=== PATIENT | female | born 1945 | race Caucasian/White ===

== ENCOUNTER → 2018-10-26 | Outpatient (CLI) | payer MEDICARE ==
--- NOTE | 2018-10-26 15:02 | BD ---
EXAMINATION TYPE: Axial Bone Density DATE OF EXAM: 10/26/2018 COMPARISON: NONE CLINICAL HISTORY: Postmenopausal female Height: 5 FT 2 1/4 IN Weight: 167 FRAX RISK QUESTIONS: Glucocorticoids (More than 3mos): YES (Ex: prednisone, prednisolone, methylprednisolone, dexamethasone, and hydrocortisone). RISK FACTORS HISTORY OF: Surgery to Spine/Hip(right/left)/Wrist (right/left): LT HIP REPLACEMENT When: 2017 Active: NO Postmenopausal woman: AGE 45- 50 Lost more than 2 inches in height since high school: YES MEDICATIONS: Additional Medications: SIMVASTATIN, LOSARTIN, ASPIRIN, KEPPRA, CALCIUM, Additional History: EXAM MEASUREMENTS: Bone mineral densitometry was performed using the [employer] System. Bone mineral density as measured about the Lumbar spine is: ----- L1-L4(G/cm2): 1.315 T Score Values are as follows: ----- L2: 0.2 ----- L3: 1.2 ----- L4: 1.4 ----- L1-L4: 1.1 PREV NOT DONE HERE Bone mineral density about the R hip (g/cm2): 0.888 T Score values are as follows: -----R Neck: -1.1 -----R Total: -0.4 PREV NOT DONE HERE IMPRESSION: Normal (Values between +1 and -1 indicate normal bone mass). Consider repeating this study in 5 year s or sooner if there is some new clinical indication. NOTE: T-SCORE=SD OF THE YOUNG ADULT MEAN.
== END | disposition home or self-care (01) ==
LOC: RADBDWWP 12:35
PROVIDERS: ATTEND Family Medicine
DX: M89.9 Disorder of bone, unspecified (principal)
CPT/HCPCS: 77080

== ENCOUNTER 2019-02-07 12:56 | Inpatient (IN) | payer MEDICARE ==
[2019-02-07] MEDS ORDERED: SODIUM CHLORIDE 0.9% 500 ML 500 ML IV STA (13:20)
[2019-02-07 13:41] LABS: Glucose,Whole Blood 125 mg/dL (75-99)
--- NOTE | 2019-02-07 13:52 | ED ---
Weakness HPI - General Chief complaint: Weakness Stated complaint: Weakness Time Seen by Provider: 02/07/19 13:15 Source: family Mode of arrival: ambulatory Limitations: altered mental status - History of Present Illness Initial comments: Patient is 73-year-old female who presents emergency Department with reported confusion. is at bedside and provides majority of the history. He states that her symptoms started on . Patient has appeared to be more confused since then. Reports that she went to the bank without her shoes. She has had a slow downward progression with her mentation. states that appears as if she has hard of hearing. She asks multiple times what he had said. She has been extremely tremulous. states that she has been unable to drink a cup of coffee as she does spill majority of it. Denies any unilateral numbness or weakness. Does admit to generalized weakness. No recent blunt head trauma. The patient is not on any blood thinners. No recent medication changes. Does not take any medications [id number]. She denies any pain. There is no headache or visual changes. Denies any neck pain or stiffness. No fevers or chills. Denies any sick contacts or recent travel. No history of TIA or CVA. The reports the patient has a cough which is nonproductive. Denies hemoptysis. No abdominal pain or changes in her urination. Denies dysuria, hematuria or difficulty voiding. Denies any changes in her bowel movements including diarrhea, constipation, melanotic stools or hematochezia. No back pain or flank pain. No history of similar episode in the past. There are no other alleviating, precipitating or modifying factors - Related Data Home Medications Medication Instructions Recorded Confirmed Aspirin EC [Ecotrin Low Dose] 81 mg PO DAILY 02/19/16 02/07/19 Losartan Potassium 100 mg PO DAILY 02/19/16 02/07/19 Simvastatin [Zocor] 20 mg PO HS 02/19/16 02/07/19 levETIRAcetam [Keppra] 750 mg PO Q12H 02/07/19 02/07/19 Previous Rx's Medication Instructions Recorded Amoxicillin/Potassium Clav 1 tab PO Q12HR #10 tab 02/11/19 [Augmentin 875-125 Tablet] Chlorthalidone 25 mg PO DAILY #1 tab 02/11/19 Omeprazole [PriLOSEC] 20 mg PO AC-BRKFST #90 cap 02/11/19 Allergies Allergy/AdvReac Type Severity Reaction Status Date / Time No Known Allergies Allergy Verified 02/07/19 13:22 Review of Systems ROS Statement: Those systems with pertinent positive or pertinent negative responses have been documented in the HPI. ROS Other: All systems not noted in ROS Statement are negative. Past Medical History Past Medical History: Hyperlipidemia, Hypertension, Seizure Disorder History of Any Multi-Drug Resistant Organisms: None Reported Past Surgical History: Orthopedic Surgery Additional Past Surgical History / Comment(s): right shoulder, droopy eyelid repair-2008, Lt hip replacement Past Anesthesia/Blood Transfusion Reactions: No Reported Reaction Past Psychological History: No Psychological Hx Reported Smoking Status: Never smoker Past Alcohol Use History: None Reported Past Drug Use History: None Reported - Past Family History Mother Family Medical History: Myocardial Infarction ([place]) Additional Family Medical History / Comment(s): mother of [place] 2005. Sister(s) Additional Family Medical History / Comment(s): Twin sister 10 years ago of unkown cause. General Exam Limitations: altered mental status General appearance: alert, in no apparent distress Head exam: Present: atraumatic, normocephalic, normal inspection Eye exam: Present: normal appearance, PERRL, EOMI. Absent: scleral icterus, conjunctival injection, periorbital swelling ENT exam: Present: normal exam, mucous membranes moist Neck exam: Present: normal inspection. Absent: tenderness, meningismus, lymphadenopathy Respiratory exam: Present: normal lung sounds bilaterally. Absent: respiratory distress, wheezes, rales, rhonchi, stridor Cardiovascular Exam: Present: regular rate, normal rhythm, normal heart sounds. Absent: systolic murmur, diastolic murmur, rubs, gallop, clicks GI/Abdominal exam: Present: soft, normal bowel sounds. Absent: distended, tenderness, guarding, rebound, rigid Extremities exam: Present: normal inspection, full ROM, normal capillary refill. Absent: tenderness, pedal edema, joint swelling, calf tenderness Back exam: Present: normal inspection Neurological exam: Present: alert, oriented X3, CN II-XII intact Psychiatric exam: Present: normal affect, normal mood Skin exam: Present: warm, dry, intact, normal color. Absent: rash Course Vital Signs 09/06/2702/07/19 02/07/19 13:11 14:46 17:23 Temperature 98.2 F 98.1 F Pulse Rate 64 65 65 Respiratory 18 18 18 Rate Blood Pressure 140/80 152/87 148/84 O2 Sat by Pulse 96 96 96 Oximetry 02/07/19 18:27 Temperature 97.9 F Pulse Rate 65 Respiratory 18 Rate Blood Pressure 141/94 O2 Sat by Pulse 97 Oximetry EKG Findings - EKG Comments: EKG Findings:: Twelve-lead EKG demonstrates a normal sinus rhythm with a ventricular rate of 66. MD interval 132. QRS 82. QTC of 438. There is an inverted T-wave in lead 3. No acute ST segment elevations concerning for ischemic changes Medical Decision Making - Medical Decision Making She was placed into room 5. She is hooked up to continuous pulse ox and cardiac monitoring. 12-lead EKG is performed the patient which demonstrates no acute findings. Peripheral IV is established. The patient was given a 500 mL bolus of 0.9% normal saline. Laboratory studies were conducted and the patient was sent for a CT of her brain and CT of her abdomen and pelvis. She also has a chest x-ray performed. Upon review of the laboratory studies the patient's sodium is 129. She has an AST of 384 and ALT of 308. Alk phos is elevated at 128. CK 453. Review of the patient's chest x-ray demonstrates a right middle lobe opacity. CT of the patient's abdomen and pelvis demonstrates a partially visualized extensive consolidation of the right middle lobe. Small infiltrate inferior lingula. Small right pleural effusion. 2.6 cm opacity at right base. Moderate circumferential thickening at the level of the gastric antrum and pylorus. Small amount of pelvic free fluid. I did reevaluate the patient. She continues to have no focal neurologic deficits. She remains alert and oriented and answers all questions appropriately. The cultures are obtained and the patient is started on Rocephin and azithromycin. I did call and discuss the case with Dr. Raza who did accept admission of the patient however did request that I talked to family and discuss lack of neurology coverage. I did talk to the patient and her . They do agree to hospitalization admission even though they are aware that neurology will not be available. Dr. Raza did recommend an MRI. The patient and her refused the MRI stating that they do not think it is necessary. I will consult Dr. José for the patient's gallbladder sludge and elevated liver enzymes. Bridging orders were placed. The patient remained in stable condition and was transported to the floor - Lab Data Result diagrams: 02/09/19 07:30 02/10/19 07:46 Lab Results 02/07/19 02/07/19 02/07/19 Range/Units 13:35 13:35 13:35 WBC 6.2 (3.8-10.6) k/uL RBC 4.01 (3.80-5.40) m/uL Hgb 12.4 (11.4-16.0) gm/dL Hct 37.0 (34.0-46.0) % MCV 92.3 (80.0-100.0) fL MCH 31.0 (25.0-35.0) pg MCHC 33.6 (31.0-37.0) g/dL RDW 12.5 (11.5-15.5) % Plt Count 152 (150-450) k/uL Neutrophils % 84 % Lymphocytes % 8 % Monocytes % 5 % Eosinophils % 1 % Basophils % 0 % Neutrophils # 5.2 (1.3-7.7) k/uL Lymphocytes # 0.5 L (1.0-4.8) k/uL Monocytes # 0.3 (0-1.0) k/uL Eosinophils # 0.1 (0-0.7) k/uL Basophils # 0.0 (0-0.2) k/uL PT (9.0-12.0) sec INR (<1.2) APTT (22.0-30.0) sec Sodium 129 L (137-145) mmol/L Potassium 3.9 (3.5-5.1) mmol/L Chloride 98 (98-107) mmol/L Carbon Dioxide 24 (22-30) mmol/L Anion Gap 7 mmol/L BUN 16 (7-17) mg/dL Creatinine 1.14 H (0.52-1.04) mg/dL Est GFR (CKD-EPI)AfAm 55 (>60 ml/min/1.73 sqM) Est GFR (CKD-EPI)NonAf 48 (>60 ml/min/1.73 sqM) Glucose 126 H (74-99) mg/dL POC Glucose (mg/dL) (75-99) mg/dL POC Glu Acidity Tester ID Plasma Lactic Acid Hernan 1.3 (0.7-2.0) mmol/L Calcium 8.3 L (8.4-10.2) mg/dL Magnesium 2.2 (1.6-2.3) mg/dL Total Bilirubin 1.4 H (0.2-1.3) mg/dL AST 384 H (14-36) U/L ALT 308 H (9-52) U/L Alkaline Phosphatase 128 H (38-126) U/L Ammonia <9 (<30) umol/L Creatine Kinase 453 H (30-135) U/L Troponin I (0.000-0.034) ng/mL Total Protein 5.9 L (6.3-8.2) g/dL Albumin 3.1 L (3.5-5.0) g/dL TSH 0.696 (0.465-4.680) mIU/L Urine Color Urine Appearance (Clear) Urine pH (5.0-8.0) Ur Specific Severance (1.001-1.035) Urine Protein (Negative) Urine Glucose (UA) (Negative) Urine Ketones (Negative) Urine Blood (Negative) Urine Nitrite (Negative) Urine Bilirubin (Negative) Urine Urobilinogen (<2.0) mg/dL Ur Leukocyte Esterase (Negative) Urine WBC (0-5) /hpf Ur Squamous Epith Cells (0-4) /hpf Salicylates <1.0 mg/dL Acetaminophen 12.2 ug/mL 02/07/19 02/07/19 02/07/19 Range/Units 13:35 13:35 13:40 WBC (3.8-10.6) k/uL RBC (3.80-5.40) m/uL Hgb (11.4-16.0) gm/dL Hct (34.0-46.0) % MCV (80.0-100.0) fL MCH (25.0-35.0) pg MCHC (31.0-37.0) g/dL RDW (11.5-15.5) % Plt Count (150-450) k/uL Neutrophils % % Lymphocytes % % Monocytes % % Eosinophils % % Basophils % % Neutrophils # (1.3-7.7) k/uL Lymphocytes # (1.0-4.8) k/uL Monocytes # (0-1.0) k/uL Eosinophils # (0-0.7) k/uL Basophils # (0-0.2) k/uL PT 9.3 (9.0-12.0) sec INR 0.8 (<1.2) APTT 26.7 (22.0-30.0) sec Sodium (137-145) mmol/L Potassium (3.5-5.1) mmol/L Chloride (98-107) mmol/L Carbon Dioxide (22-30) mmol/L Anion Gap mmol/L BUN (7-17) mg/dL Creatinine (0.52-1.04) mg/dL Est GFR (CKD-EPI)AfAm (>60 ml/min/1.73 sqM) Est GFR (CKD-EPI)NonAf (>60 ml/min/1.73 sqM) Glucose (74-99) mg/dL POC Glucose (mg/dL) 125 H (75-99) mg/dL POC Glu Acidity Tester ID Zohra Bella Plasma Lactic Acid Hernan (0.7-2.0) mmol/L Calcium (8.4-10.2) mg/dL Magnesium (1.6-2.3) mg/dL Total Bilirubin (0.2-1.3) mg/dL AST (14-36) U/L ALT (9-52) U/L Alkaline Phosphatase (38-126) U/L Ammonia (<30) umol/L Creatine Kinase (30-135) U/L Troponin I 0.014 (0.000-0.034) ng/mL Total Protein (6.3-8.2) g/dL Albumin (3.5-5.0) g/dL TSH (0.465-4.680) mIU/L Urine Color Urine Appearance (Clear) Urine pH (5.0-8.0) Ur Specific Severance (1.001-1.035) Urine Protein (Negative) Urine Glucose (UA) (Negative) Urine Ketones (Negative) Urine Blood (Negative) Urine Nitrite (Negative) Urine Bilirubin (Negative) Urine Urobilinogen (<2.0) mg/dL Ur Leukocyte Esterase (Negative) Urine WBC (0-5) /hpf Ur Squamous Epith Cells (0-4) /hpf Salicylates mg/dL Acetaminophen ug/mL 02/07/19 Range/Units 14:40 WBC (3.8-10.6) k/uL RBC (3.80-5.40) m/uL Hgb (11.4-16.0) gm/dL Hct (34.0-46.0) % MCV (80.0-100.0) fL MCH (25.0-35.0) pg MCHC (31.0-37.0) g/dL RDW (11.5-15.5) % Plt Count (150-450) k/uL Neutrophils % % Lymphocytes % % Monocytes % % Eosinophils % % Basophils % % Neutrophils # (1.3-7.7) k/uL Lymphocytes # (1.0-4.8) k/uL Monocytes # (0-1.0) k/uL Eosinophils # (0-0.7) k/uL Basophils # (0-0.2) k/uL PT (9.0-12.0) sec INR (<1.2) APTT (22.0-30.0) sec Sodium (137-145) mmol/L Potassium (3.5-5.1) mmol/L Chloride (98-107) mmol/L Carbon Dioxide (22-30) mmol/L Anion Gap mmol/L BUN (7-17) mg/dL Creatinine (0.52-1.04) mg/dL Est GFR (CKD-EPI)AfAm (>60 ml/min/1.73 sqM) Est GFR (CKD-EPI)NonAf (>60 ml/min/1.73 sqM) Glucose (74-99) mg/dL POC Glucose (mg/dL) (75-99) mg/dL POC Glu Acidity Tester ID Plasma Lactic Acid Hernan (0.7-2.0) mmol/L Calcium (8.4-10.2) mg/dL Magnesium (1.6-2.3) mg/dL Total Bilirubin (0.2-1.3) mg/dL AST (14-36) U/L ALT (9-52) U/L Alkaline Phosphatase (38-126) U/L Ammonia (<30) umol/L Creatine Kinase (30-135) U/L Troponin I (0.000-0.034) ng/mL Total Protein (6.3-8.2) g/dL Albumin (3.5-5.0) g/dL TSH (0.465-4.680) mIU/L Urine Color Light Yellow Urine Appearance Clear (Clear) Urine pH 6.0 (5.0-8.0) Ur Specific Severance 1.015 (1.001-1.035) Urine Protein Negative (Negative) Urine Glucose (UA) Negative (Negative) Urine Ketones Negative (Negative) Urine Blood Small H (Negative) Urine Nitrite Negative (Negative) Urine Bilirubin Negative (Negative) Urine Urobilinogen <2.0 (<2.0) mg/dL Ur Leukocyte Esterase Negative (Negative) Urine WBC 3 (0-5) /hpf Ur Squamous Epith Cells 1 (0-4) /hpf Salicylates mg/dL Acetaminophen ug/mL Disposition Clinical Impression: Altered mental status, Pneumonia, Elevated liver enzymes Disposition: ADMITTED IP TO THIS [facility] Condition: Stable Is patient prescribed a controlled substance at d/c from ED?: No Decision to Admit Reason: Admit from EC Decision Date: 02/07/19 Decision Time: 16:45
[2019-02-07 13:54] LABS: Basophils % (A) 0 %; Eosinophils # (A) 0.1 k/uL (0-0.7); Eosinophils % (A) 1 %; HGB 12.4 gm/dL (11.4-16.0); Lymphocytes # (A) 0.5 k/uL (1.0-4.8); Lymphocytes % (A) 8 %; MCHC 33.6 g/dL (31.0-37.0); MCV 92.3 fL (80.0-100.0); Mean Platelet Volume 9.5; Monocytes # (A) 0.3 k/uL (0-1.0); Monocytes % (A) 5 %; Neutrophils # (A) 5.2 k/uL (1.3-7.7); Neutrophils % (A) 84 %; Platelet Count 152 k/uL (150-450); RBC 4.01 m/uL (3.80-5.40); RDW 12.5 % (11.5-15.5); WBC 6.2 k/uL (3.8-10.6)
[2019-02-07 13:56] LABS: INR 0.8 (<1.2); Partial Thromboplastin Time 26.7 sec (22.0-30.0); Prothrombin Time 9.3 sec (9.0-12.0)
[2019-02-07 13:58] LABS: ALT 308 U/L (9-52); AST 384 U/L (14-36); Acetaminophen 12.2 ug/mL; African American GFR (CKD) 55 (>60 ml/min/1.73 sqM); Albumin 3.1 g/dL (3.5-5.0); Alkaline Phosphatase 128 U/L (38-126); Anion Gap 7 mmol/L; Blood Urea Nitrogen 16 mg/dL (7-17); Calcium 8.3 mg/dL (8.4-10.2); Carbon Dioxide 24 mmol/L (22-30); Chloride 98 mmol/L (98-107); Creatine Kinase 453 U/L (30-135); Glucose 126 mg/dL (74-99); Magnesium 2.2 mg/dL (1.6-2.3); Potassium 3.9 mmol/L (3.5-5.1); Salicylate <1.0 mg/dL; Sodium 129 mmol/L (137-145); Total Bilirubin 1.4 mg/dL (0.2-1.3); Total Protein 5.9 g/dL (6.3-8.2)
--- NOTE | 2019-02-07 14:33 | CT ---
EXAMINATION TYPE: CT brain wo con DATE OF EXAM: 02/07/2019 COMPARISON: 02/19/2016 HISTORY: 73-year-old female weakness TECHNIQUE: Examination was done in axial plane without intravenous contrast. Coronal and sagittal r econstructions performed. CT DLP: 1040.4 mGycm Automated exposure control for dose reduction was used. FINDINGS: There is no evidence of acute intracranial hemorrhage, acute ischemic changes, mass, mass-effect, or extra-axial fluid collection. There is no effacement of cerebral sulci or basal subarachnoid cister ns. There is no hydrocephalus. There is no midline shift. Roca-white matter distinction is preserv ed. For mild subinsular white matter hypodensity on the left seems to have been present on prior likely r eflecting changes of chronic small vessel ischemic disease. Minimal age-related cerebral cortical vol ume loss. Paranasal sinuses and mastoid air cells are well pneumatized. Orbits and globes are intact. IMPRESSION: No acute intracranial abnormality seen.
--- NOTE | 2019-02-07 14:49 | CT ---
EXAMINATION TYPE: CT abdomen pelvis w con DATE OF EXAM: 02/07/2019 COMPARISON: NONE HISTORY: 73-year-old female Pain TECHNIQUE: Contiguous axial scanning of the abdomen and pelvis following administration of 100 ml Iso tommy 300 IV contrast. Delayed images through the kidneys and coronal/sagittal reconstructions perform ed. CT DLP: 1020.7 mGycm Automated exposure control for dose reduction was used. FINDINGS: Heart upper limits of normal in size with trace anterior basilar pericardial fluid. Small right pleural effusion with extensive consolidation within the visualized right middle lobe and some patchy consolidation inferior lingula as well. Some focal irregular opacity in the posterior right base measures 2.6 cm should be reassessed at foll ow-up. Reference axial image 15. Small hiatal hernia. Small amount of focal fat along the anterior falciform ligament. Otherwise, no focal liver lesion. Po rtal venous system is patent. No biliary ductal dilatation. Adrenal glands, kidneys, spleen, pancreas appear within normal limits. No dilated small bowel free air. No mesenteric or retroperitoneal lymphadenopathy. Normal appendix. Some liquid stool seen within the cecum. There is moderate circumferential wall thickening with mucosal hyperemia in the region of the gastric antrum/duodenal bulb. Refer to axial image 28 and coronal image 41. Bladder is urine distended. Uterus anteverted. Left periuterine varices noted. Both ovaries are visua lized. Small amount of cul-de-sac free fluid. Bones: Left hip total arthroplasty. Degenerative disc disease throughout. Facet arthropathy with grad e 1 anterolisthesis at L3-L4 and L4-L5. IMPRESSION: 1. PARTIALLY VISUALIZED EXTENSIVE CONSOLIDATION RIGHT MIDDLE LOBE. SMALLER INFILTRATE INFERIOR LINGUL AR. SMALL RIGHT EFFUSION. CORRELATE FOR POSSIBLE MULTIFOCAL PNEUMONIA OR PULMONARY EDEMA. 2. A 4-6 WEEK FOLLOW-UP CT CHEST RECOMMENDED TO ENSURE CLEARANCE A MORE FOCAL 2.6 CM OPACITY IS DC ESENT AT THE RIGHT BASE. 3. MODERATE CIRCUMFERENTIAL THICKENING AT THE LEVEL OF THE GASTRIC ANTRUM/PYLORUS. UNDERLYING PEPTIC ULCER DISEASE OR NEOPLASM NOT EXCLUDED. DIRECT VISUALIZATION INDICATED. 4. SMALL AMOUNT OF PELVIC FREE FLUID OF UNCERTAIN ETIOLOGY.
--- NOTE | 2019-02-07 14:57 | XR ---
EXAMINATION TYPE: XR chest 2V DATE OF EXAM: 02/07/2019 COMPARISON: 02/22/2016 HISTORY: 73-year-old female with weakness TECHNIQUE: PA and lateral views FINDINGS: Partially visualized reverse right shoulder arthroplasty. Heart upper limits of normal in size. Mild interstitial prominence. Dense consolidation right middle lobe. Trace right effusion. IMPRESSION: Dense consolidation right middle lobe and trace right effusion. Correlate for pneumonia with small pa rapneumonic effusion. Follow-up CT in 4-6 weeks after treatment to reassess (refer to report from CT abdomen same day).
[2019-02-07 14:58] LABS: Ammonia <9 umol/L (<30); Lactic Acid, Venous 1.3 mmol/L (0.7-2.0)
[2019-02-07 15:05] LABS: Appearance,Urine Clear (Clear); Bilirubin,Urine Negative (Negative); Blood,Urine Small (Negative); Color,Urine Light Yellow; Glucose,Urine (UA) Negative (Negative); Ketones,Urine Negative (Negative); Leukocyte Esterase,Urine Negative (Negative); Nitrite,Urine Negative (Negative); Protein,Urine Negative (Negative); Specific Gravity,Urine 1.015 (1.001-1.035); Squamous Epithelial Cell,Urine 1 /hpf (0-4); Urobilinogen,Urine <2.0 mg/dL (<2.0)
[2019-02-07] MEDS ORDERED: AZITHROMYCIN 500 MG in SODIUM CHLORIDE 0.9% 250 ML IVPB STA (15:28)
--- NOTE | 2019-02-07 16:22 | US ---
EXAMINATION TYPE: US gallbladder DATE OF EXAM: 02/07/2019 COMPARISON: Same day CT CLINICAL HISTORY: 73-year-old female Pain. Pt states weakness, recent abnormal LFT's TECHNIQUE: Multiple sonographic images of the right upper quadrant are obtained. FINDINGS: EXAM MEASUREMENTS: Liver Length: 13.7 cm Gallbladder Wall: 0.3 cm CBD: 7.4 mm Right Kidney: 9.1 x 4.4 x 4.3 cm Pancreas: wnl, tail obscured by overlying bowel gas Liver: wnl Gallbladder: No abnormal distention, wall thickening, pericholecystic fluid, or shadowing calculi. L ayering sludge is noted. Evidence for sonographic Torres's sign: No CBD: Mild dilated Right Kidney: No hydronephrosis. Lower pole gassed out Incidental finding right pleural effusion IMPRESSION: 1. Small right effusion. 2. Mildly dilated bile duct may be normal in a patient of this age. Correlate with alkaline phosphata se and bilirubin levels. 3. Layering sludge within the gallbladder. No ancillary findings of acute cholecystitis.
[2019-02-07] MEDS ORDERED: NALOXONE 0.4 MG/ML 1 ML VIAL IV PRN (17:50)
[2019-02-07] MEDS: SODIUM CHLORIDE 0.9% 1,000 ML IV SCH (17:56)
[2019-02-07] MEDS: ATORVASTATIN 10 MG TAB PO SCH (20:44)
--- NOTE | 2019-02-07 22:20 | P.HPIM ---
History of Present Illness H&P Date: 02/07/19 Chief Complaint: Cough and confusion History of presenting complaint: This is a pleasant 73-year-old patient of Dr. delarosa. Patient presents to the ER. This is the ER physician note: " Patient is 73-year-old female who presents emergency Department with reported confusion. is at bedside and provides majority of the history. He states that her symptoms started on . Patient has appeared to be more confused since then. Reports that that today she went to the bank without her shoes. She has had a slow downward progression with her mentation. states that appears as if she has hard of hearing. She asks multiple times what he had said. She has been extremely tremulous. states that she has been unable to drink a cup of coffee as she does still majority of it. Denies any unilateral numbness or weakness. Does admit to generalized weakness. No recent blunt head trauma. The patient is not on any blood thinners. No recent medication changes. Does not take any medications [id number]. She denies any pain. There is no headache or visual changes. Denies any neck pain or stiffness. No fevers or chills. Denies any sick contacts or recent travel. No history of TIA or CVA. The reports the patient has a cough which is nonproductive. Denies hemoptysis. No abdominal pain or changes in her urination. Denies dysuria, hematuria or difficulty voiding. Denies any changes in her bowel movements including diarrhea, constipation, melanotic stools or hematochezia. No back pain or flank pain. No history of similar episode in the past. There are no other alleviating, precipitating or modifying factors " Patient does not remember much of this. She states she's had a chronic cough large 4-5 days. No phlegm. No fever no chills. Does feel rather tired more so significantly. Feels like sleeping all the time. Denies any major shortness of breath. Patient does state that 3 years ago she had head injury. Looking at the old note she had a diagnosis of complex partial seizures. Was on Keppra. No further episodes since then. 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 Homemaker. Family history: Mother had OK Physical examination: VITAL SIGNS: 98.2, 64, 18, 140/80, 96% room air GENERAL: Average built, laying in bed tired appearing. EYES: Pupils equal. Conjunctiva normal. HEENT: External appearance of nose and ears normal, oral cavity grossly normal. NECK: JVD not raised; masses not palpable. HEART: First and second heart sounds are normal; no edema. LUNGS: Respiratory rate normal; clear to auscultation. ABDOMEN: Soft, nontender, liver spleen not palpable, no masses palpable. PSYCH: [Alert and oriented x3; tired appearing l. NEUROLOGICAL: Cranial nerves grossly intact; no facial asymmetry, power and sensation grossly intact. LYMPHATICS: No lymph nodes palpable in the axilla and neck INVESTIGATIONS, reviewed in the clinical context: White count 6.2 hemoglobin 12.4 potassium 3.9 creatinine 1.14 Total bilirubin 1.4 AST 384 ALT 308 albumin 3.1 TSH 0.6.6 Chest x-ray film personally reviewed by me-shows a dense consolidation on the right lower part CT chest-consultation extensive right middle lobe. Moderate circumferential thickening at the level of the gastric antrum and pylorus Abdominal ultrasound-gallbladder sludge Assessment: -This is a patient presented to 4 days of increasing what of cough. Has a right lower lobe dense consolidation. Suspect this treated pneumonia. The patient does not have a fever nor white count. Patient later further workup after giving a course of antibiotic. -Possible delirium from underlying pneumonia -Abnormal LFTs. Cause unclear at this point. We'll send out a hepatitis panel. Also get a GI opinion -Given abnormal computed tomography scan finding of the gastric antrum, elevated LFTs, and dense consolidation of the right lung. Rule out underlying malignancy -Primary osteoarthritis -Essential hypertension Plan: Patient did receive a dose of ceftriaxone in the ER. We'll start the patient on IV Zosyn. General surgery was consulted. Acute hepatitis panel has been ordered. We'll also send off alpha-fetoprotein. We'll see how the patient is an extra 24 hours. And proceed from there. Patient does not have an acute abdomen. Past Medical History Past Medical History: Hyperlipidemia, Hypertension, Seizure Disorder History of Any Multi-Drug Resistant Organisms: None Reported Past Surgical History: Orthopedic Surgery Additional Past Surgical History / Comment(s): right shoulder, droopy eyelid repair-2009, Lt hip replacement Past Anesthesia/Blood Transfusion Reactions: No Reported Reaction Past Psychological History: No Psychological Hx Reported Smoking Status: Former smoker Past Alcohol Use History: None Reported Past Drug Use History: None Reported - Past Family History Mother Family Medical History: Myocardial Infarction ([place]) Additional Family Medical History / Comment(s): mother of [place] 2005. Sister(s) Additional Family Medical History / Comment(s): Twin sister 10 years ago of unkown cause. Medications and Allergies Home Medications Medication Instructions Recorded Confirmed Type Aspirin EC [Ecotrin Low Dose] 81 mg PO DAILY 02/19/16 02/07/19 History Losartan Potassium 100 mg PO DAILY 02/19/16 02/07/19 History Simvastatin [Zocor] 20 mg PO HS 02/19/16 02/07/19 History levETIRAcetam [Keppra] 750 mg PO Q12H 02/07/19 02/07/19 History Allergies Allergy/AdvReac Type Severity Reaction Status Date / Time No Known Allergies Allergy Verified 02/07/19 13:22 Physical Exam Vitals: Vital Signs Temp Pulse Resp BP Pulse Ox 02/07/19 18:27 97.9 F 65 18 141/94 97 02/07/19 17:23 98.1 F 65 18 148/84 96 02/07/19 14:46 65 18 152/87 96 02/07/19 13:11 98.2 F 64 18 140/80 96 Intake and Output 02/07/19 02/07/19 02/07/19 06:59 14:59 22:59 Output Total 389 Balance -389 Output: Urine 300 Post Void Residual 89 Other: Weight 72.575 kg Results CBC & Chem 7: 02/07/19 13:35 02/07/19 13:35 Labs: Abnormal Lab Results - Last 24 Hours (Table) 02/07/19 02/07/19 02/07/19 Range/Units 13:35 13:35 13:40 Lymphocytes # 0.5 L (1.0-4.8) k/uL Sodium 129 L (137-145) mmol/L Creatinine 1.14 H (0.52-1.04) mg/dL Glucose 126 H (74-99) mg/dL POC Glucose (mg/dL) 125 H (75-99) mg/dL Calcium 8.3 L (8.4-10.2) mg/dL Total Bilirubin 1.4 H (0.2-1.3) mg/dL AST 384 H (14-36) U/L ALT 308 H (9-52) U/L Alkaline Phosphatase 128 H (38-126) U/L Creatine Kinase 453 H (30-135) U/L Total Protein 5.9 L (6.3-8.2) g/dL Albumin 3.1 L (3.5-5.0) g/dL Urine Blood (Negative) 02/07/19 Range/Units 14:40 Lymphocytes # (1.0-4.8) k/uL Sodium (137-145) mmol/L Creatinine (0.52-1.04) mg/dL Glucose (74-99) mg/dL POC Glucose (mg/dL) (75-99) mg/dL Calcium (8.4-10.2) mg/dL Total Bilirubin (0.2-1.3) mg/dL AST (14-36) U/L ALT (9-52) U/L Alkaline Phosphatase (38-126) U/L Creatine Kinase (30-135) U/L Total Protein (6.3-8.2) g/dL Albumin (3.5-5.0) g/dL Urine Blood Small H (Negative) Thrombosis Risk Factor Assmnt - Choose All That Apply Any of the Below Risk Factors Present?: Yes Each Factor Represents 1 point: Obesity (BMI >25), Serious lung disease incl. pneumonia (< 1month) Other Risk Factors: Yes Each Risk Factor Represents 2 Points: Age 61-74 years Other congenital or acquired thrombophilia - If yes, enter type in comment: No Thrombosis Risk Factor Assessment Total Risk Factor Score: 4 Thrombosis Risk Factor Assessment Level: Moderate Risk
[2019-02-08] MEDS: PIPERACILLIN-TAZOBACTAM 3.375 GM in SODIUM CHLORIDE 0.9% 100 ML IVPB SCH ×3 (00:04→16:04)
[2019-02-08] MEDS: SODIUM CHLORIDE 0.9% 1,000 ML IV SCH ×2 (05:52→20:12)
[2019-02-08 07:09] LABS: Basophils % (A) 0 %; Eosinophils % (A) 1 %; HCT 35.9 % (34.0-46.0); HGB 11.7 gm/dL (11.4-16.0); Lymphocytes # (A) 0.4 k/uL (1.0-4.8); Lymphocytes % (A) 8 %; MCH 30.7 pg (25.0-35.0); MCHC 32.7 g/dL (31.0-37.0); MCV 93.9 fL (80.0-100.0); Mean Platelet Volume 10.3; Monocytes # (A) 0.3 k/uL (0-1.0); Monocytes % (A) 6 %; Neutrophils # (A) 4.1 k/uL (1.3-7.7); Neutrophils % (A) 83 %; Platelet Count 177 k/uL (150-450); RBC 3.83 m/uL (3.80-5.40); RDW 13.6 % (11.5-15.5)
[2019-02-08 07:21] LABS: Calcium 8.4 mg/dL (8.4-10.2); Potassium 4.1 mmol/L (3.5-5.1)
[2019-02-08 08:45] LABS: Albumin 2.9 g/dL (3.5-5.0); Total Bilirubin 0.9 mg/dL (0.2-1.3); Total Protein 5.4 g/dL (6.3-8.2)
[2019-02-08] MEDS: ASPIRIN 81 MG PO SCH (09:13)
[2019-02-08] MEDS: LOSARTAN 50 MG TAB PO SCH (09:13)
[2019-02-08] MEDS: ENOXAPARIN 40 MG/0.4 ML SYRINGE SQ SCH (09:13)
--- NOTE | 2019-02-08 09:27 | P.GSCN ---
History of Present Illness Consult date: 02/08/19 Reason for Consult: Elevated liver enzymes, abnormal CAT scan History of present illness: 73-year-old female comes to the ER with her . She has had increased confusion at home. Symptoms began 3-4 days ago. Patient describes weakness. Denies any abdominal pain, no nausea or vomiting, no fevers or chills. States she was recently treated for pneumonia. In the ER the patient was found to have elevated liver enzymes. CAT scan was performed. CAT scan shows infiltrate right lung, thickening of antrum, pylorus, and proximal duodenum. Ultrasound showed sludge within the gallbladder. Common bile duct slightly dilated. Right pleural effusion also noted. We were consulted because of the abnormal CAT scan findings and the elevated liver enzymes. Review of Systems The patient denies any acute changes in vision or hearing, no dysphagia or odynophagia, no chest pain or shortness of breath, no dysuria or hematuria, no headache, no runny nose, no rectal bleeding or melena, no unexplained weight loss Past Medical History Past Medical History: Hyperlipidemia, Hypertension, Seizure Disorder History of Any Multi-Drug Resistant Organisms: None Reported Past Surgical History: Orthopedic Surgery Additional Past Surgical History / Comment(s): right shoulder, droopy eyelid repair-2008, Lt hip replacement Past Anesthesia/Blood Transfusion Reactions: No Reported Reaction Past Psychological History: No Psychological Hx Reported Smoking Status: Never smoker Past Alcohol Use History: None Reported Past Drug Use History: None Reported - Past Family History Mother Family Medical History: Myocardial Infarction ([place]) Additional Family Medical History / Comment(s): mother of [place] 2005. Sister(s) Additional Family Medical History / Comment(s): Twin sister 10 years ago of unkown cause. Medications and Allergies Home Medications Medication Instructions Recorded Confirmed Type Aspirin EC [Ecotrin Low Dose] 81 mg PO DAILY 02/19/16 02/07/19 History Losartan Potassium 100 mg PO DAILY 02/19/16 02/07/19 History Simvastatin [Zocor] 20 mg PO HS 02/19/16 02/07/19 History levETIRAcetam [Keppra] 750 mg PO Q12H 02/07/19 02/07/19 History Allergies Allergy/AdvReac Type Severity Reaction Status Date / Time No Known Allergies Allergy Verified 02/07/19 13:22 Surgical - Exam Vital Signs Temp Pulse Resp BP Pulse Ox 98.2 F 64 18 140/80 96 02/07/19 13:11 02/07/19 13:11 02/07/19 13:11 02/07/19 13:11 02/07/19 13:11 Physical exam: General: Well-developed, well-nourished HEENT: Normocephalic, sclerae nonicteric Abdomen: Nontender, nondistended Extremities: No edema Neuro: Alert and oriented Results - Labs 02/08/19 06:50 02/08/19 06:50 Abnormal Lab Results - Last 24 Hours (Table) 02/07/19 02/07/19 02/07/19 Range/Units 13:35 13:35 13:40 Lymphocytes # 0.5 L (1.0-4.8) k/uL Sodium 129 L (137-145) mmol/L Creatinine 1.14 H (0.52-1.04) mg/dL Glucose 126 H (74-99) mg/dL POC Glucose (mg/dL) 125 H (75-99) mg/dL Calcium 8.3 L (8.4-10.2) mg/dL Total Bilirubin 1.4 H (0.2-1.3) mg/dL AST 384 H (14-36) U/L ALT 308 H (9-52) U/L Alkaline Phosphatase 128 H (38-126) U/L Creatine Kinase 453 H (30-135) U/L Total Protein 5.9 L (6.3-8.2) g/dL Albumin 3.1 L (3.5-5.0) g/dL Urine Blood (Negative) 02/07/19 02/08/19 02/08/19 Range/Units 14:40 06:50 06:50 Lymphocytes # 0.4 L (1.0-4.8) k/uL Sodium 136 L (137-145) mmol/L Creatinine (0.52-1.04) mg/dL Glucose (74-99) mg/dL POC Glucose (mg/dL) (75-99) mg/dL Calcium (8.4-10.2) mg/dL Total Bilirubin (0.2-1.3) mg/dL AST 200 H (14-36) U/L ALT 232 H (9-52) U/L Alkaline Phosphatase (38-126) U/L Creatine Kinase (30-135) U/L Total Protein 5.4 L (6.3-8.2) g/dL Albumin 2.9 L (3.5-5.0) g/dL Urine Blood Small H (Negative) Diabetes panel 02/07/19 02/08/19 Range/Units 13:35 06:50 Sodium 129 L 136 L (137-145) mmol/L Potassium 3.9 4.1 (3.5-5.1) mmol/L Chloride 98 104 (98-107) mmol/L Carbon Dioxide 24 26 (22-30) mmol/L BUN 16 14 (7-17) mg/dL Creatinine 1.14 H 0.98 (0.52-1.04) mg/dL Glucose 126 H 83 (74-99) mg/dL Calcium 8.3 L 8.4 (8.4-10.2) mg/dL AST 384 H 200 H (14-36) U/L ALT 308 H 232 H (9-52) U/L Alkaline Phosphatase 128 H 118 (38-126) U/L Total Protein 5.9 L 5.4 L (6.3-8.2) g/dL Albumin 3.1 L 2.9 L (3.5-5.0) g/dL Thyroid panel 02/07/19 Range/Units 13:35 TSH 0.696 (0.465-4.680) mIU/L Calcium panel 02/07/19 02/08/19 Range/Units 13:35 06:50 Calcium 8.3 L 8.4 (8.4-10.2) mg/dL Albumin 3.1 L 2.9 L (3.5-5.0) g/dL Pituitary panel 02/07/19 02/08/19 Range/Units 13:35 06:50 Sodium 129 L 136 L (137-145) mmol/L Potassium 3.9 4.1 (3.5-5.1) mmol/L Chloride 98 104 (98-107) mmol/L Carbon Dioxide 24 26 (22-30) mmol/L BUN 16 14 (7-17) mg/dL Creatinine 1.14 H 0.98 (0.52-1.04) mg/dL Glucose 126 H 83 (74-99) mg/dL Calcium 8.3 L 8.4 (8.4-10.2) mg/dL TSH 0.696 (0.465-4.680) mIU/L Adrenal panel 02/07/19 02/08/19 Range/Units 13:35 06:50 Sodium 129 L 136 L (137-145) mmol/L Potassium 3.9 4.1 (3.5-5.1) mmol/L Chloride 98 104 (98-107) mmol/L Carbon Dioxide 24 26 (22-30) mmol/L BUN 16 14 (7-17) mg/dL Creatinine 1.14 H 0.98 (0.52-1.04) mg/dL Glucose 126 H 83 (74-99) mg/dL Calcium 8.3 L 8.4 (8.4-10.2) mg/dL Total Bilirubin 1.4 H 0.9 (0.2-1.3) mg/dL AST 384 H 200 H (14-36) U/L ALT 308 H 232 H (9-52) U/L Alkaline Phosphatase 128 H 118 (38-126) U/L Total Protein 5.9 L 5.4 L (6.3-8.2) g/dL Albumin 3.1 L 2.9 L (3.5-5.0) g/dL Assessment and Plan (1) Elevated liver enzymes Narrative/Plan: Patient with presentation to the emergency department complaining of worsening confusion. Found to have elevated liver enzymes. Abnormal CAT scan findings as described. Will ask GI to see this patient to help evaluate for cho ledocholithiasis or etiology for transaminitis. Upper endoscopy should be considered given the recent CAT scan findings at some point. For now recommend clear liquids advance as tolerated. Will follow. Current Visit: Yes Status: Acute Code(s): R74.8 - ABNORMAL LEVELS OF OTHER SERUM ENZYMES SNOMED Code(s): 355319236
[2019-02-08] MEDS: PANTOPRAZOLE 40 MG/10 ML VIAL IVP SCH (13:07)
--- NOTE | 2019-02-08 13:56 | P.PN ---
Progress Note - Text Progress Note Date: 02/08/19 Chief Complaint: Cough and confusion Interval history: This is a pleasant 73-year-old patient of Dr. delarosa. Patient presents to the ER. This is the ER physician note: " Patient is 73-year-old female who presents emergency Department with reported confusion. is at bedside and provides majority of the history. He states that her symptoms started on . Patient has appeared to be more confused since then. Reports that that today she went to the bank without her shoes. She has had a slow downward progression with her mentation. states that appears as if she has hard of hearing. She asks multiple times what he had said. She has been extremely tremulous. states that she has been unable to drink a cup of coffee as she does still majority of it. Denies any unilateral numbness or weakness. Does admit to generalized weakness. No recent blunt head trauma. The patient is not on any blood thinners. No recent medication changes. Does not take any medications [id number]. She denies any pain. There is no headache or visual changes. Denies any neck pain or stiffness. No fevers or chills. Denies any sick contacts or recent travel. No history of TIA or CVA. The reports the patient has a cough which is nonproductive. Denies hemoptysis. No abdominal pain or changes in her urination. Denies dysuria, hematuria or difficulty voiding. Denies any changes in her bowel movements including diarrhea, constipation, melanotic stools or hematochezia. No back pain or flank pain. No history of similar episode in the past. There are no other alleviating, precipitating or modifying factors " Patient does not remember much of this. She states she's had a chronic cough large 4-5 days. No phlegm. No fever no chills. Does feel rather tired more so significantly. Feels like sleeping all the time. Denies any major shortness of breath. Patient does state that 3 years ago she had head injury. Looking at the old note she had a diagnosis of complex partial seizures. Was on Keppra. No further episodes since then. It is felt patient had right lower lobe pneumonia. Also in the clinical picture is the workup for hepatitis, gastric antral wall thickening. Today-cough is better. Patient's appears more cleared up in a mine. and 2 sons are present. Per the patient is more back to baseline. No sputum no fever. Review of systems: Was done for constitutional, cardiovascular, GI, pulmonary. relevant finding as above Active Medications Aspirin (Aspirin) 81 mg PO DAILY [facility] Last Admin: 02/08/19 09:13 Dose: 81 mg Documented by: Atorvastatin Calcium (Lipitor) 10 mg PO HS [facility] Last Admin: 02/07/19 20:44 Dose: 10 mg Documented by: Enoxaparin Sodium (Lovenox) 40 mg SQ DAILY [facility] Last Admin: 02/08/19 09:13 Dose: Not Given Documented by: Sodium Chloride (Saline 0.9%) 1,000 mls @ 75 mls/hr IV .[id number] [facility] Last Admin: 02/08/19 05:52 Dose: 75 mls/hr Documented by: Piperacillin Sod/Tazobactam (Sod 3.375 gm/ Sodium Chloride) 100 mls @ 25 mls/hr IVPB Q8HR [facility] Last Admin: 02/08/19 09:12 Dose: 25 mls/hr Documented by: Levetiracetam (Keppra) 750 mg PO Q12H [facility] Last Admin: 02/08/19 05:53 Dose: 750 mg Documented by: Losartan Potassium (Cozaar) 100 mg PO DAILY [facility] Last Admin: 02/08/19 09:13 Dose: 100 mg Documented by: Naloxone HCl (Narcan) 0.2 mg IV Q2M PRN PRN Reason: Opioid Reversal Pantoprazole Sodium (Protonix) 40 mg IVP DAILY [facility] Last Admin: 02/08/19 13:07 Dose: 40 mg Documented by: Physical examination: VITAL SIGNS: Afebrile, 66, 18, 119/65, 94% room air GENERAL: Laying in bed, more comfortable EYES: Pupils equal. Conjunctiva normal. HEENT: External appearance of nose and ears normal, oral cavity grossly normal. NECK: JVD not raised; masses not palpable. HEART: First and second heart sounds are normal; no edema. LUNGS: Respiratory rate normal; clear to auscultation. ABDOMEN: Soft, nontender, liver spleen not palpable, no masses palpable. PSYCH: [Alert and oriented x3; tired appearing l. NEUROLOGICAL: Cranial nerves grossly intact; no facial asymmetry, power and sensation grossly intact. INVESTIGATIONS, reviewed in the clinical context: White count 5 hemoglobin 11.7 potassium 4.1 White count 6.2 hemoglobin 12.4 potassium 3.9 creatinine 1.14 AST 200 ALT 232 Admission testing: Total bilirubin 1.4 AST 384 ALT 308 albumin 3.1 TSH 0.6.6 Chest x-ray film personally reviewed by me-shows a dense consolidation on the right lower part CT chest-consultation extensive right middle lobe. Moderate circumferential thickening at the level of the gastric antrum and pylorus Abdominal ultrasound-gallbladder sludge Assessment: -This is a patient presented to 4 days of increasing what of cough. Has a right lower lobe dense consolidation. Suspect this to be pneumonia. The patient does not have a fever nor white count. Patient later further workup after giving a course of antibiotic. -Possible delirium from underlying pneumonia -Abnormal LFTs. Improving. Cause unclear at this point. We'll send out a hepatitis panel. Also get a GI opinion -Given abnormal computed tomography scan finding of the gastric antrum, elevated LFTs, and dense consolidation of the right lung. Rule out underlying malignancy -Primary osteoarthritis -Essential hypertension Plan: Keep the patient on IV Zosyn. LFTs are coming down. Clinically improving. See how she does an extra across. We'll get a pulmonary opinion. Repeat a chest x-ray in the morning. Discussed Dr. Savi Denson. Discussed with the family at length with the bedside. Total time spent today was about 40 minutes with over 25 minutes of discussion.
[2019-02-08] MEDS: ATORVASTATIN 10 MG TAB PO SCH (20:12)
--- NOTE | 2019-02-08 22:44 | CONS ---
CONSULTATION DATE OF SERVICE: 02/08/2019. REQUESTING PHYSICIAN: Dr. Hoffman REASON FOR CONSULTATION: Elevated LFTs. HISTORY OF PRESENT ILLNESS: The patient is a 73-year-old pleasant white female admitted to the hospital because of fatigue, not feeling well for the last 3 to 4 days duration and some confusion. He was subsequently brought in the emergency room and was diagnosed with right lower lobe pneumonia. While in the hospital, was noted to have elevated serum transaminases and hence we were consulted in regard to this issue. The patient denies any abdominal pain. Reports no nausea, vomiting. No prior history of chronic liver disease. No fever, chills, night sweats. No history of alcohol use. LABS AT THE TIME OF ADMISSION: The hospital she was noted to have mild elevation of serum transaminases with ALT and AST at 384 and 308 respectively. T bilirubin 1.4 and alkaline phosphatase was 158. This morning T bilirubin and alkaline phosphatase are normalized and ALT and AST have improved at 200 and 232 respectively. The patient on broad-spectrum antibiotics for right lower lobe pneumonia. She did have a CT of the abdomen and pelvis done when she came to the emergency room yesterday afternoon that showed an extensive consolidation on the right middle lobe with a small right-sided pleural effusion, moderate circumferential thickening level at the level of the gastric antrum and possibility of peptic ulcer disease was suggested by the radiologist and endoscopy was recommended. PAST MEDICAL HISTORY: Significant for hypertension, seizure disorder. PAST SURGICAL HISTORY: Right shoulder surgery, eyelid repair, left hip replacement. FAMILY HISTORY: Mother coronary artery disease. Sister 10 years ago of unknown cause. SOCIAL HISTORY: Former smoker. No alcohol use. MEDICATIONS: At home include aspirin, Zocor, Keppra, losartan. ALLERGIES: None. REVIEW OF SYSTEMS: CARDIOPULMONARY: No chest pain, shortness of breath. GENITOURINARY: No dysuria or hematuria. MUSCULOSKELETAL: Unremarkable. SKIN: Unremarkable. ENDOCRINE: Unremarkable. PSYCHIATRIC: Unremarkable. NEUROLOGY: Unremarkable ENT/VISION: Unremarkable. CONSTITUTIONAL: No recent weight loss. PHYSICAL EXAMINATION: Blood pressure is 125/79, pulse is 70, temperature 98.3. HEENT examination unremarkable. Conjunctivae pink. Sclerae anicteric. Oral cavity no lesions. Neck, no JVD or lymph node enlargement. Chest clear to auscultation. Heart regular rate and rhythm. Abdomen soft. Bowel sounds are positive. No organomegaly. Extremities no pedal edema. Skin no rashes. Neurologic alert and oriented x3. No focal deficits. LABS: WBC 6.2, hemoglobin 12.4, platelets normal. AST and ALT are 384 and 308 respectively. T bilirubin and alkaline phosphatase are 1.4 and 128. Today bilirubin alkaline phosphatase normal, AST 200, ALT 232. CBC is normal. IMPRESSION: 1. Right lower lobe pneumonia on broad-spectrum antibiotics. 2. Asymptomatic elevation of serum transaminases in this patient with no abdominal pain. CT of the abdomen showed gallbladder sludge, slightly dilated CBD. Ultrasound of the gallbladder did not show any evidence gallstones. Elevated serum transaminases, probably medication related. Doubt we are dealing with any biliary pathology at the present time given the given the fact the patient has no abdominal pain. Serum transaminases have somewhat improved since yesterday. 3. Abnormal CT scan showing thickening circumferential thickening of the antrum to rule out peptic ulcer disease/neoplasm. The patient does not have any upper gastrointestinal symptoms. RECOMMENDATIONS: 1. Continue with broad-spectrum antibiotics. 2. Continue with Protonix 40 mg daily. 3. Possible upper endoscopy during this hospitalization on outpatient basis based on her clinical condition. The plan was discussed with the patient as well as the at the bedside. Thank you for this consultation. MMODL / IJN: [id number] /
[2019-02-09] MEDS: PIPERACILLIN-TAZOBACTAM 3.375 GM in SODIUM CHLORIDE 0.9% 100 ML IVPB SCH ×4 (00:07→23:32)
[2019-02-09] MEDS: LOSARTAN 50 MG TAB PO SCH (08:07)
[2019-02-09] MEDS: ASPIRIN 81 MG PO SCH (08:07)
[2019-02-09] MEDS: PANTOPRAZOLE 40 MG/10 ML VIAL IVP SCH (08:08)
[2019-02-09] MEDS: ENOXAPARIN 40 MG/0.4 ML SYRINGE SQ SCH (08:08)
[2019-02-09] MEDS: SODIUM CHLORIDE 0.9% 1,000 ML IV SCH (08:08)
[2019-02-09 08:52] LABS: Albumin 2.8 g/dL (3.5-5.0); Calcium 8.3 mg/dL (8.4-10.2); Total Protein 5.6 g/dL (6.3-8.2)
[2019-02-09 09:07] LABS: Potassium 4.3 mmol/L (3.5-5.1)
--- NOTE | 2019-02-09 09:19 | XR ---
EXAMINATION TYPE: XR chest 2V DATE OF EXAM: 02/09/2019 COMPARISON: 02/07/2019 TECHNIQUE: PA and lateral views submitted. HISTORY: Cough FINDINGS: Partially visualized reverse right shoulder arthroplasty. Heart upper limits of normal in size. Mild interstitial prominence. Dense consolidation right middle lobe. Trace right effusion. IMPRESSION: 1. Stable right-sided consolidation correlate for pneumonia. Follow-up to resolution to exclude under lying neoplasm.
[2019-02-09 09:20] LABS: Basophils % (A) 1 %; Eosinophils # (A) 0.2 k/uL (0-0.7); Eosinophils % (A) 3 %; HCT 36.8 % (34.0-46.0); HGB 11.9 gm/dL (11.4-16.0); Lymphocytes # (A) 0.7 k/uL (1.0-4.8); Lymphocytes % (A) 14 %; MCH 30.2 pg (25.0-35.0); MCHC 32.3 g/dL (31.0-37.0); MCV 93.5 fL (80.0-100.0); Mean Platelet Volume 12.1; Monocytes # (A) 0.4 k/uL (0-1.0); Monocytes % (A) 7 %; Neutrophils % (A) 74 %; Platelet Count 151 k/uL (150-450); RBC 3.94 m/uL (3.80-5.40); RDW 13.6 % (11.5-15.5); WBC 5.4 k/uL (3.8-10.6)
[2019-02-09 10:41] LABS: Alpha Fetoprotein, Tumor Mkr 2.7 ng/mL (0.0-7.9)
--- NOTE | 2019-02-09 11:36 | P.PN ---
<Tiffanie Mariano Shabbir - Last Filed: 02/09/19 11:28> Subjective Progress Note Date: 02/09/19 CHIEF COMPLAINT: Elevated LFTs, abnormal CT scan HISTORY OF PRESENT ILLNESS: Patient examined this morning at the bedside. She denies abdominal pain. Tolerating diet. Denies nausea or vomiting. Reports dry cough that has been present for about 5 days. CXR this morning reveals persistent right sided consolidation. WBC 5.4. Bilirubin 1.0. AST 145. ALT 182. PHYSICAL EXAM: VITAL SIGNS: Reviewed. GENERAL: Well-developed in no acute distress. HEENT: No sclera icterus. Extraocular movements grossly intact. Moist buccal mucosa. Head is atraumatic, normocephalic. ABDOMEN: Soft. Nondistended. Nontender. NEUROLOGIC: Alert and oriented. Cranial nerves II through XII grossly intact. ASSESSMENT: 1. Transaminitis, asymptomatic, LFTs improving, US reveals GB sludge without evidence of gallstones 2. Abnormal CT revealing circumferential thickening of the antrum, possible peptic ulcer disease, patient asymptomatic PLAN: 1. GI has been consulted and does not feel transaminitis is secondary to biliary pathology and believes it may be secondary to medications 2. Continue Protonix 3. Continue current diet 4. Patient will require EGD secondary to abnormal CT scan. Inpatient versus outpatient to be determined by Dr. José this afternoon Nurse practitioner note has been reviewed by physician. Signing provider agrees with the documented findings, assessment, and plan of care. Objective - Vital Signs Vital signs: Vital Signs Temp 98.2 F 02/09/19 04:42 Pulse 67 02/09/19 04:42 Resp 16 02/09/19 04:42 BP 136/78 02/09/19 04:42 Pulse Ox 92 L 02/09/19 04:42 Intake & Output 02/08/19 02/09/19 02/09/19 18:59 06:59 18:59 Intake Total 1240 1062.5 Balance 1240 1062.5 Intake: Intake, IV Titration 640 1062.5 Amount Piperacillin-Tazobactam 3 200 .375 gm In Sodium Chloride 0.9% 100 ml @ 25 mls/hr IVPB Q8HR [facility] Rx# :[id number] Sodium Chloride 0.9% 1, 640 862.5 000 ml @ 75 mls/hr IV . [id number] [facility] Rx#:[id number] Oral 600 Other: Voiding Method Toilet Toilet Toilet # Voids 1 - Labs CBC & Chem 7: 02/09/19 07:30 02/09/19 07:30 Labs: Abnormal Lab Results - Last 24 Hours (Table) 02/09/19 02/09/19 Range/Units 07:30 07:30 Lymphocytes # 0.7 L (1.0-4.8) k/uL Chloride 108 H (98-107) mmol/L Calcium 8.3 L (8.4-10.2) mg/dL AST 145 H (14-36) U/L ALT 182 H (9-52) U/L Total Protein 5.6 L (6.3-8.2) g/dL Albumin 2.8 L (3.5-5.0) g/dL Microbiology - Last 24 Hours (Table) 02/07/19 17:34 Blood Culture - Preliminary Blood No Growth after 24 hours <Pedro José - Last Filed: 02/09/19 13:45> Subjective As above. Doing well currently. Liver enzymes improving. Denies abdominal pain. Spoke with GI. At this time we both agree that elevated liver enzymes not necessarily related to choledocholithiasis. We'll continue to monitor. Patient will require upper endoscopy. Patient would like to hold off until pneumonia improved which is not unreasonable. Plan EGD either later during this admission or possibly as an outpatient. Objective - Vital Signs Vital signs: Vital Signs Temp 97.8 F 02/09/19 11:29 Pulse 66 02/09/19 11:29 Resp 16 02/09/19 11:29 BP 138/82 02/09/19 11:29 Pulse Ox 96 02/09/19 11:29 Intake & Output 02/08/19 02/09/19 02/09/19 18:59 06:59 18:59 Intake Total 1240 1062.5 Balance 1240 1062.5 Intake: Intake, IV Titration 640 1062.5 Amount Piperacillin-Tazobactam 3 200 .375 gm In Sodium Chloride 0.9% 100 ml @ 25 mls/hr IVPB Q8HR [facility] Rx# :[id number] Sodium Chloride 0.9% 1, 640 862.5 000 ml @ 75 mls/hr IV . [id number] [facility] Rx#:[id number] Oral 600 Other: Voiding Method Toilet Toilet Toilet # Voids 1 - Labs CBC & Chem 7: 02/09/19 07:30 02/09/19 07:30 Labs: Abnormal Lab Results - Last 24 Hours (Table) 02/08/19 02/09/19 02/09/19 Range/Units 06:50 07:30 07:30 Lymphocytes # 0.7 L (1.0-4.8) k/uL Chloride 108 H (98-107) mmol/L Calcium 8.3 L (8.4-10.2) mg/dL AST 145 H (14-36) U/L ALT 182 H (9-52) U/L Total Protein 5.6 L (6.3-8.2) g/dL Albumin 2.8 L (3.5-5.0) g/dL Procalcitonin 0.42 H (0.02-0.09) ng/mL Microbiology - Last 24 Hours (Table) 02/07/19 17:34 Blood Culture - Preliminary Blood No Growth after 24 hours Assessment and Plan (1) Elevated liver enzymes Current Visit: Yes Status: Acute Code(s): R74.8 - ABNORMAL LEVELS OF OTHER SERUM ENZYMES SNOMED Code(s): 994708735
[2019-02-09 13:13] LABS: Procalcitonin 0.42 ng/mL (0.02-0.09)
--- NOTE | 2019-02-09 18:39 | P.CNPUL ---
History of Present Illness Consult date: 02/09/19 Reason for consult: dyspnea, cough, pneumonia, pleural effusion Chief complaint: Shortness of breath and cough with episodic confusion History of present illness: This is a 73-year-old female with extensive history of smoking and nicotine use in the remote past patient was brought in the emergency department with short ness of breath cough for 1 week duration and eventually become very confused as noted by review of the records revealed that she has a large consolidation in right middle lobe and some on the right lower lobe with small right-sided pleural effusion diagnosed as pneumonia patient has been on IV Zosyn and she also has a history of complex partial seizure history of head trauma about 3 years ago it appears that patient is now back to baseline today, the chest x-ray performed today on February 09 continue show a right sided lower lobe middle lobe consolidation Review of Systems All systems: negative Past Medical History Past Medical History: Hyperlipidemia, Hypertension, Seizure Disorder History of Any Multi-Drug Resistant Organisms: None Reported Past Surgical History: Orthopedic Surgery Additional Past Surgical History / Comment(s): right shoulder, droopy eyelid repair-2008, Lt hip replacement Past Anesthesia/Blood Transfusion Reactions: No Reported Reaction Past Psychological History: No Psychological Hx Reported Smoking Status: Never smoker Past Alcohol Use History: None Reported Past Drug Use History: None Reported - Past Family History Mother Family Medical History: Myocardial Infarction (NM) Additional Family Medical History / Comment(s): mother of NM 2005. Sister(s) Additional Family Medical History / Comment(s): Twin sister 10 years ago of unkown cause. Medications and Allergies Home Medications Medication Instructions Recorded Confirmed Type Aspirin EC [Ecotrin Low Dose] 81 mg PO DAILY 02/19/16 02/07/19 History Losartan Potassium 100 mg PO DAILY 02/19/16 02/07/19 History Simvastatin [Zocor] 20 mg PO HS 02/19/16 02/07/19 History levETIRAcetam [Keppra] 750 mg PO Q12H 02/07/19 02/07/19 History Allergies Allergy/AdvReac Type Severity Reaction Status Date / Time No Known Allergies Allergy Verified 02/07/19 13:22 Physical Exam Vitals: Vital Signs Temp Pulse Resp BP Pulse Ox 02/09/19 11:29 97.8 F 66 16 138/82 96 02/09/19 04:42 98.2 F 67 16 136/78 92 L 02/08/19 20:46 98.3 F 74 16 132/61 96 Intake and Output 02/09/19 02/09/19 02/09/19 06:59 14:59 22:59 Intake Total 700 550 Output Total 300 Balance 700 250 Intake: Intake, IV Titration 700 100 Amount Piperacillin-Tazobactam 3 100 100 .375 gm In Sodium Chloride 0.9% 100 ml @ 25 mls/hr IVPB Q8HR [facility] Rx# :[id number] Sodium Chloride 0.9% 1, 600 000 ml @ 75 mls/hr IV . [id number] [facility] Rx#:[id number] Oral 450 Output: Urine 300 Other: Voiding Method Toilet Toilet # Voids 2 - Constitutional General appearance: average body habitus, cooperative, disheveled, mild distress - EENT Eyes: anicteric sclerae, EOMI, PERRLA, normal appearance ENT: normal oropharynx Ears: bilateral: normal - Neck Neck: normal ROM Carotids: bilateral: upstroke normal, bruit absent Thyroid: bilateral: normal size - Respiratory Respiratory: right: diminished, rales, negative: rhonchi, wheezing, prolonged expiration - Cardiovascular Rhythm: regular Heart sounds: normal: S1, S2 - Gastrointestinal General gastrointestinal: decreased bowel sounds, soft - Integumentary Integumentary: normal, normal turgor - Musculoskeletal Musculoskeletal: gait normal, generalized weakness, strength equal bilaterally - Psychiatric Psychiatric: A&O x's 3, appropriate affect, intact judgment & insight Results - Laboratory Findings CBC and BMP: 02/09/19 07:30 02/09/19 07:30 PT/INR, D-dimer PT 9.3 sec (9.0-12.0) 02/07/19 13:35 INR 0.8 (<1.2) 02/07/19 13:35 Abnormal lab findings: Abnormal Labs 02/07/19 02/07/19 02/07/19 13:35 13:35 13:40 Lymphocytes # 0.5 L Sodium 129 L Chloride Creatinine 1.14 H Glucose 126 H POC Glucose (mg/dL) 125 H Calcium 8.3 L Total Bilirubin 1.4 H AST 384 H ALT 308 H Alkaline Phosphatase 128 H Creatine Kinase 453 H Total Protein 5.9 L Albumin 3.1 L Procalcitonin Urine Blood 02/07/19 02/08/19 02/08/19 14:40 06:50 06:50 Lymphocytes # 0.4 L Sodium 136 L Chloride Creatinine Glucose POC Glucose (mg/dL) Calcium Total Bilirubin AST 200 H ALT 232 H Alkaline Phosphatase Creatine Kinase Total Protein 5.4 L Albumin 2.9 L Procalcitonin Urine Blood Small H 02/08/19 02/09/19 02/09/19 06:50 07:30 07:30 Lymphocytes # 0.7 L Sodium Chloride 108 H Creatinine Glucose POC Glucose (mg/dL) Calcium 8.3 L Total Bilirubin AST 145 H ALT 182 H Alkaline Phosphatase Creatine Kinase Total Protein 5.6 L Albumin 2.8 L Procalcitonin 0.42 H Urine Blood - Diagnostic Findings Chest x-ray: report reviewed, image reviewed CT scan - chest: report reviewed, image reviewed (Finding as noted above) Assessment and Plan Assessment: Altered mental status due to delirium and sepsis Right middle lobe and lower lobe consolidation and pneumonia Acalculous cystitis and elevated liver enzymes Hypertension hypertensive cardiovascular disease Partial complex seizure Story of head trauma Plan: Agree with IV antibiotics Monitor clinical course closely with labs Agree with discharge planning in 1-2 days with follow-up on outpatient then patient will require a follow-up computed tomography scan Time with Patient: Greater than 30
--- NOTE | 2019-02-09 20:15 | PN ---
PROGRESS NOTE DATE OF DICTATION: 02/09/2019 The patient is a 73-year-old pleasant white female admitted to the hospital with right lower lobe pneumonia and elevated LFTs. She says that she is feeling much better. Cough has resolved. No fever, chills or night sweats. Denies any abdominal pain. No nausea or vomiting. PHYSICAL EXAMINATION: She appears comfortable, in no apparent distress. Vital signs are stable. Blood pressure is 136/78, pulse is 67, temperature 98.2. HEENT EXAMINATION: Unremarkable. Conjunctivae pink. Sclerae anicteric. Oral cavity with no lesions. NECK: No JVD or lymph node enlargement. CHEST: Clear to auscultation. HEART: Regular rate and rhythm. ABDOMEN: Soft. Bowel sounds are positive. No organomegaly. EXTREMITIES: No pedal edema. SKIN: No rashes. NEUROLOGIC: Alert and oriented x3. No focal deficits. LAB: T-bilirubin is down to 1. AST 145, ALT 182, alkaline phosphatase normal at 94. Hepatitis serologies for A, B and C were negative. IMPRESSION: 1. Right lower lobe pneumonia, on broad-spectrum antibiotics, gradually improving. 2. Asymptomatic elevation of serum transaminases, which are also gradually improving. Ultrasound of the abdomen did not show any evidence of biliary ductal dilation or gallstones. Doubt biliary pathology. Most likely may be medication-related hepatitis. 3. Abnormal CT scan showing thickening of the pylorus, but patient does not have any upper gastrointestinal symptoms. RECOMMENDATIONS: 1. Continue with broad-spectrum antibiotics for the pneumonia. 2. In regard to the elevated LFTs, we will continue to monitor them closely. 3. Repeat labs in the morning and will follow with you. MMODL / IJN: [id number] /
[2019-02-09] MEDS: ATORVASTATIN 10 MG TAB PO SCH (21:15)
--- NOTE | 2019-02-09 23:20 | P.PN ---
Progress Note - Text Progress Note Date: 02/09/19 Chief Complaint: Cough and confusion Interval history: This is a pleasant 73-year-old patient of Dr. delarosa. Patient presents to the ER. This is the ER physician note: " Patient is 73-year-old female who presents emergency Department with reported confusion. is at bedside and provides majority of the history. He states that her symptoms started on . Patient has appeared to be more confused since then. Reports that that today she went to the bank without her shoes. She has had a slow downward progression with her mentation. states that appears as if she has hard of hearing. She asks multiple times what he had said. She has been extremely tremulous. states that she has been unable to drink a cup of coffee as she does still majority of it. Denies any unilateral numbness or weakness. Does admit to generalized weakness. No recent blunt head trauma. The patient is not on any blood thinners. No recent medication changes. Does not take any medications [id number]. She denies any pain. There is no headache or visual changes. Denies any neck pain or stiffness. No fevers or chills. Denies any sick contacts or recent travel. No history of TIA or CVA. The reports the patient has a cough which is nonproductive. Denies hemoptysis. No abdominal pain or changes in her urination. Denies dysuria, hematuria or difficulty voiding. Denies any changes in her bowel movements including diarrhea, constipation, melanotic stools or hematochezia. No back pain or flank pain. No history of similar episode in the past. There are no other alleviating, precipitating or modifying factors " Patient does not remember much of this. She states she's had a chronic cough large 4-5 days. No phlegm. No fever no chills. Does feel rather tired more so significantly. Feels like sleeping all the time. Denies any major shortness of breath. Patient does state that 3 years ago she had head injury. Looking at the old note she had a diagnosis of complex partial seizures. Was on Keppra. No further episodes since then. It is felt patient had right lower lobe pneumonia. Also in the clinical picture is the workup for hepatitis, gastric antral wall thickening. Today-patient to keep much better. Feels better. Had some cough last night. No fever no chills. and son by the bedside. Did tolerate her diet. Been out of bed. Review of systems: Was done for constitutional, cardiovascular, GI, pulmonary. relevant finding as above Active Medications Aspirin (Aspirin) 81 mg PO DAILY [facility] Last Admin: 02/09/19 08:07 Dose: 81 mg Documented by: Atorvastatin Calcium (Lipitor) 10 mg PO HS [facility] Last Admin: 02/09/19 21:15 Dose: 10 mg Documented by: Enoxaparin Sodium (Lovenox) 40 mg SQ DAILY [facility] Last Admin: 02/09/19 08:08 Dose: 40 mg Documented by: Sodium Chloride (Saline 0.9%) 1,000 mls @ 75 mls/hr IV .[id number] [facility] Last Admin: 02/09/19 08:08 Dose: 75 mls/hr Documented by: Piperacillin Sod/Tazobactam (Sod 3.375 gm/ Sodium Chloride) 100 mls @ 25 mls/hr IVPB Q8HR [facility] Last Admin: 02/09/19 15:18 Dose: 25 mls/hr Documented by: Levetiracetam (Keppra) 750 mg PO Q12H [facility] Last Admin: 02/09/19 17:54 Dose: 750 mg Documented by: Losartan Potassium (Cozaar) 100 mg PO DAILY [facility] Last Admin: 02/09/19 08:07 Dose: 100 mg Documented by: Naloxone HCl (Narcan) 0.2 mg IV Q2M PRN PRN Reason: Opioid Reversal Pantoprazole Sodium (Protonix) 40 mg PO AC-BRKFST [facility] Physical examination: VITAL SIGNS: 97.8, 66, 16, 1:30 to 82, 96% room air GENERAL: Propped up, awake comfortable EYES: Pupils equal. Conjunctiva normal. HEENT: External appearance of nose and ears normal, oral cavity grossly normal. NECK: JVD not raised; masses not palpable. HEART: First and second heart sounds are normal; no edema. LUNGS: Respiratory rate normal; clear to auscultation. ABDOMEN: Soft, nontender, liver spleen not palpable, no masses palpable. PSYCH: [Alert and oriented x3; tired appearing l. NEUROLOGICAL: Cranial nerves grossly intact; no facial asymmetry, power and sensation grossly intact. INVESTIGATIONS, reviewed in the clinical context: White count 5.4 hemoglobin 11.9 potassium 4.3 creatinine 0.91 AST 145 ALT 182 albumin 2.8 pro calcitonin . 42 Previous testing White count 5 hemoglobin 11.7 potassium 4.1 White count 6.2 hemoglobin 12.4 potassium 3.9 creatinine 1.14 AST 200 ALT 232 Admission testing: Total bilirubin 1.4 AST 384 ALT 308 albumin 3.1 TSH 0.6.6 Chest x-ray film personally reviewed by me-shows a dense consolidation on the right lower part CT chest-consultation extensive right middle lobe. Moderate circumferential thickening at the level of the gastric antrum and pylorus Abdominal ultrasound-gallbladder sludge Assessment: -Right lower lobe pneumonia, greatly improving -Possible delirium from underlying pneumonia, much improved -Abnormal LFTs. Likely from pneumonia, improving -Abnormal gastric antrum on the computed tomography scan for outpatient workup -Primary osteoarthritis -Essential hypertension Plan: Continue with IV Zosyn for at least another 24 hours. Patient was seen by pulmonary later today. No further workup currently. Further as an outpatient. Care was discussed with the patient and family the bedside. Have the patient walk in the hallway and see how she does.
[2019-02-10] MEDS: SODIUM CHLORIDE 0.9% 1,000 ML IV SCH ×2 (03:33→08:16)
[2019-02-10] MEDS: ENOXAPARIN 40 MG/0.4 ML SYRINGE SQ SCH (08:12)
[2019-02-10] MEDS: PANTOPRAZOLE 40 MG TABLET PO SCH (08:13)
[2019-02-10] MEDS: LOSARTAN 50 MG TAB PO SCH (08:13)
[2019-02-10] MEDS: ASPIRIN 81 MG PO SCH (08:13)
[2019-02-10] MEDS: PIPERACILLIN-TAZOBACTAM 3.375 GM in SODIUM CHLORIDE 0.9% 100 ML IVPB SCH ×2 (08:13→16:51)
--- NOTE | 2019-02-10 08:52 | P.PN ---
Subjective Progress Note Date: 02/10/19 Principal diagnosis: Elevated liver enzymes Patient doing well today. Still complaining of a dry cough. Morning labs pending. Tolerating diet. Denies abdominal pain. Objective - Vital Signs Vital signs: Vital Signs Temp 98.0 F 02/10/19 05:00 Pulse 65 02/10/19 05:00 Resp 16 02/10/19 05:00 BP 149/87 02/10/19 05:00 Pulse Ox 93 L 02/10/19 05:00 Intake & Output 02/09/19 02/10/19 02/10/19 18:59 06:59 18:59 Intake Total 550 1690 Output Total 300 300 Balance 250 1390 Intake: Intake, IV Titration 100 850 Amount Piperacillin-Tazobactam 3 100 100 .375 gm In Sodium Chloride 0.9% 100 ml @ 25 mls/hr IVPB Q8HR [facility] Rx# :[id number] Sodium Chloride 0.9% 1, 750 000 ml @ 75 mls/hr IV . [id number] [facility] Rx#:[id number] Oral 450 840 Output: Urine 300 300 Other: Voiding Method Toilet Toilet Toilet # Voids 2 2 - Exam Abdomen: Soft, nontender, nondistended - Labs CBC & Chem 7: 02/09/19 07:30 02/09/19 07:30 Labs: Abnormal Lab Results - Last 24 Hours (Table) 02/08/19 02/09/19 02/09/19 Range/Units 06:50 07:30 07:30 Lymphocytes # 0.7 L (1.0-4.8) k/uL Chloride 108 H (98-107) mmol/L Calcium 8.3 L (8.4-10.2) mg/dL AST 145 H (14-36) U/L ALT 182 H (9-52) U/L Total Protein 5.6 L (6.3-8.2) g/dL Albumin 2.8 L (3.5-5.0) g/dL Procalcitonin 0.42 H (0.02-0.09) ng/mL Microbiology - Last 24 Hours (Table) 02/07/19 17:34 Blood Culture - Preliminary Blood No Growth after 48 hours Assessment and Plan (1) Elevated liver enzymes Narrative/Plan: Await morning labs. Continue regular diet. Continue antibiotics for suspected right-sided pneumonia. Will plan EGD tomorrow to evaluate abnormal CAT scan findings. Current Visit: Yes Status: Acute Code(s): R74.8 - ABNORMAL LEVELS OF OTHER SERUM ENZYMES SNOMED Code(s): 103676845
[2019-02-10 08:53] LABS: Albumin 2.6 g/dL (3.5-5.0); Calcium 8.6 mg/dL (8.4-10.2); Total Bilirubin 0.7 mg/dL (0.2-1.3)
--- NOTE | 2019-02-10 13:32 | P.PN ---
Subjective Progress Note Date: 02/10/19 Principal diagnosis: Gastric mucosal thickening in the antral area with a differential diagnoses of ulcer and neoplasm Altered mental status due to delirium and sepsis Right middle lobe and lower lobe consolidation and pneumonia Acalculous cystitis and elevated liver enzymes Hypertension hypertensive cardiovascular disease Partial complex seizure Story of head trauma 02/10/2019, patient seen and evaluated examined care plan discussed at length with the primary service and patient is going for endoscopy tomorrow for abnormal finding and gastric antrum from respiratory standpoint doing well remains on Zosyn hopefully can be changed to Augmentin next 24 hours for 7-10 days on outpatient basis O follow up and do a repeat computed tomography scan pending further findings on the gastric mucosal wall This is a 73-year-old female with extensive history of smoking and nicotine use in the remote past patient was brought in the emergency department with shortness of breath cough for 1 week duration and eventually become very confused as noted by review of the records revealed that she has a large consolidation in right middle lobe and some on the right lower lobe with small right-sided pleural effusion diagnosed as pneumonia patient has been on IV Zosyn and she also has a history of complex partial seizure history of head trauma about 3 years ago it appears that patient is now back to baseline today, the chest x-ray performed today on February 09 continue show a right sided lower lobe middle lobe consolidation Objective - Vital Signs Vital signs: Vital Signs Temp 98 F 02/10/19 12:24 Pulse 61 02/10/19 12:24 Resp 16 02/10/19 12:24 BP 132/67 02/10/19 12:24 Pulse Ox 98 02/10/19 12:24 Intake & Output 02/09/19 02/10/19 02/10/19 18:59 06:59 18:59 Intake Total 550 1690 Output Total 300 300 Balance 250 1390 Intake: Intake, IV Titration 100 850 Amount Piperacillin-Tazobactam 3 100 100 .375 gm In Sodium Chloride 0.9% 100 ml @ 25 mls/hr IVPB Q8HR [facility] Rx# :[id number] Sodium Chloride 0.9% 1, 750 000 ml @ 75 mls/hr IV . [id number] [facility] Rx#:[id number] Oral 450 840 Output: Urine 300 300 Other: Voiding Method Toilet Toilet Toilet # Voids 2 2 - Exam - Constitutional General appearance: average body habitus, cooperative, disheveled, mild distress - EENT Eyes: anicteric sclerae, EOMI, PERRLA, normal appearance ENT: normal oropharynx Ears: bilateral: normal - Neck Neck: normal ROM Carotids: bilateral: upstroke normal, bruit absent Thyroid: bilateral: normal size - Respiratory Respiratory: right: diminished, rales, negative: rhonchi, wheezing, prolonged expiration - Cardiovascular Rhythm: regular Heart sounds: normal: S1, S2 - Gastrointestinal General gastrointestinal: decreased bowel sounds, soft - Integumentary Integumentary: normal, normal turgor - Musculoskeletal Musculoskeletal: gait normal, generalized weakness, strength equal bilaterally - Psychiatric Psychiatric: A&O x's 3, appropriate affect, intact judgment & insight - Labs CBC & Chem 7: 02/09/19 07:30 02/10/19 07:46 Labs: Abnormal Lab Results - Last 24 Hours (Table) 02/10/19 Range/Units 07:46 Chloride 109 H (98-107) mmol/L AST 118 H (14-36) U/L ALT 167 H (9-52) U/L Total Protein 5.0 L (6.3-8.2) g/dL Albumin 2.6 L (3.5-5.0) g/dL Microbiology - Last 24 Hours (Table) 02/07/19 17:34 Blood Culture - Preliminary Blood No Growth after 48 hours Assessment and Plan Assessment: Abnormal gastric mucosal wall and antral area with a differential diagnosis of neoplasm versus ulcer patient is for EGD tomorrow Altered mental status due to delirium and sepsis Right middle lobe and lower lobe consolidation and pneumonia Acalculous cystitis and elevated liver enzymes Hypertension hypertensive cardiovascular disease Partial complex seizure Story of head trauma Plan: Agree with IV antibiotics, can be changed to oral like Augmentin for another 7- 10 days Awaiting findings on endoscopy tomorrow Monitor clinical course closely with labs Agree with discharge planning in 1-2 days with follow-up on outpatient then patient will require a follow-up computed tomography scan Time with Patient: Greater than 30
--- NOTE | 2019-02-10 17:13 | PN ---
PROGRESS NOTE DATE OF DICTATION: 02/10/2019 Patient is a 73-year-old pleasant white female admitted to the hospital with right lower lobe pneumonia and presently on antibiotics. She is feeling much better. She still has some persistent cough, but shortness of breath has improved. She denies any abdominal pain. No nausea, vomiting. Noted to have elevated serum transaminases which are gradually improving. CT scan showed thickening of the antrum. She is scheduled for an upper endoscopy by Dr. José tomorrow. PHYSICAL EXAMINATION: She appears comfortable. No apparent distress. VITAL SIGNS: Stable. Blood pressure is 138/82, pulse rate 70, temperature 98.2. HEENT examination unremarkable. Conjunctivae pink. Sclerae anicteric. Oral cavity no lesions. NECK: No JVD or lymph node enlargement. CHEST: Clear to auscultation. HEART: Regular rate and rhythm. ABDOMEN: Soft. Bowel sounds are positive. No organomegaly. EXTREMITIES: No pedal edema. SKIN: No rashes. NEUROLOGIC: Alert and oriented x3. No focal deficits. AST is 118, ALT is 167. T-bilirubin and alkaline phosphatase are normal. CBC is within normal limits. IMPRESSION: 1. Mild asymptomatic elevation of serum transaminases, which are gradually improving, possibly medication-related. Hepatitis serologies for A, B and C were negative. 2. Thickened antrum noted on recent CT of the abdomen. She denies any upper GI symptoms. Scheduled for EGD by Dr. José tomorrow. 3. Right lower lobe pneumonia, for which Dr. Vargas is following the patient closely. On antibiotics. Her symptoms are gradually improving. RECOMMENDATIONS: 1. Repeat LFTs in the morning. 2. Avoid hepatotoxic medications. 3. Will follow with you closely. MMODL / IJN: [id number] /
--- NOTE | 2019-02-10 20:15 | P.PN ---
Progress Note - Text Progress Note Date: 02/10/19 Chief Complaint: Cough and confusion Interval history: This is a pleasant 73-year-old patient of Dr. delarosa. Patient presents to the ER. This is the ER physician note: " Patient is 73-year-old female who presents emergency Department with reported confusion. is at bedside and provides majority of the history. He states that her symptoms started on . Patient has appeared to be more confused since then. Reports that that today she went to the bank without her shoes. She has had a slow downward progression with her mentation. states that appears as if she has hard of hearing. She asks multiple times what he had said. She has been extremely tremulous. states that she has been unable to drink a cup of coffee as she does still majority of it. Denies any unilateral numbness or weakness. Does admit to generalized weakness. No recent blunt head trauma. The patient is not on any blood thinners. No recent medication changes. Does not take any medications [id number]. She denies any pain. There is no headache or visual changes. Denies any neck pain or stiffness. No fevers or chills. Denies any sick contacts or recent travel. No history of TIA or CVA. The reports the patient has a cough which is nonproductive. Denies hemoptysis. No abdominal pain or changes in her urination. Denies dysuria, hematuria or difficulty voiding. Denies any changes in her bowel movements including diarrhea, constipation, melanotic stools or hematochezia. No back pain or flank pain. No history of similar episode in the past. There are no other alleviating, precipitating or modifying factors " Patient does not remember much of this. She states she's had a chronic cough large 4-5 days. No phlegm. No fever no chills. Does feel rather tired more so significantly. Feels like sleeping all the time. Denies any major shortness of breath. Patient does state that 3 years ago she had head injury. Looking at the old note she had a diagnosis of complex partial seizures. Was on Keppra. No further episodes since then. It is felt patient had right lower lobe pneumonia. Also in the clinical picture is the workup for hepatitis, gastric antral wall thickening. Today-feeling well. Minimal cough. Has been out of bed. Starting a diet. Review of systems: Was done for constitutional, cardiovascular, GI, pulmonary. relevant finding as above Active Medications Aspirin (Aspirin) 81 mg PO DAILY [facility] Last Admin: 02/10/19 08:13 Dose: 81 mg Documented by: Atorvastatin Calcium (Lipitor) 10 mg PO HS [facility] Last Admin: 02/09/19 21:15 Dose: 10 mg Documented by: Enoxaparin Sodium (Lovenox) 40 mg SQ DAILY [facility] Last Admin: 02/10/19 08:12 Dose: 40 mg Documented by: Sodium Chloride (Saline 0.9%) 1,000 mls @ 75 mls/hr IV .[id number] [facility] Last Admin: 02/10/19 08:16 Dose: 75 mls/hr Documented by: Piperacillin Sod/Tazobactam (Sod 3.375 gm/ Sodium Chloride) 100 mls @ 25 mls/hr IVPB Q8HR [facility] Last Admin: 02/10/19 16:51 Dose: 25 mls/hr Documented by: Levetiracetam (Keppra) 750 mg PO Q12H [facility] Last Admin: 02/10/19 17:38 Dose: 750 mg Documented by: Losartan Potassium (Cozaar) 100 mg PO DAILY [facility] Last Admin: 02/10/19 08:13 Dose: 100 mg Documented by: Naloxone HCl (Narcan) 0.2 mg IV Q2M PRN PRN Reason: Opioid Reversal Pantoprazole Sodium (Protonix) 40 mg PO AC-BRKFST [facility] Last Admin: 02/10/19 08:13 Dose: 40 mg Documented by: Physical examination: VITAL SIGNS: 98, 61, 16, 1:30 duplicity 7, 98% room air GENERAL: Sitting up, comfortable talkative EYES: Pupils equal. Conjunctiva normal. HEENT: External appearance of nose and ears normal, oral cavity grossly normal. NECK: JVD not raised; masses not palpable. HEART: First and second heart sounds are normal; no edema. LUNGS: Respiratory rate normal; clear to auscultation. ABDOMEN: Soft, nontender, liver spleen not palpable, no masses palpable. PSYCH: [Alert and oriented x3; mood and affect normal l. NEUROLOGICAL: Cranial nerves grossly intact; no facial asymmetry, power and sensation grossly intact. INVESTIGATIONS, reviewed in the clinical context: Potassium 4 AST 118 ALT was 67 albumin 2.6 pro calcitonin . 42 Hepatitis screen negative Previous testing White count 5 hemoglobin 11.7 potassium 4.1 White count 6.2 hemoglobin 12.4 potassium 3.9 creatinine 1.14 AST 200 ALT 232 Admission testing: Total bilirubin 1.4 AST 384 ALT 308 albumin 3.1 TSH 0.6.6 Chest x-ray film personally reviewed by me-shows a dense consolidation on the right lower part CT chest-consultation extensive right middle lobe. Moderate circumferential thickening at the level of the gastric antrum and pylorus Abdominal ultrasound-gallbladder sludge Assessment: -Right lower lobe pneumonia, improving improving -Possible delirium from underlying pneumonia, much improved -Abnormal LFTs. Likely from pneumonia, improving -Abnormal gastric antrum on the computed tomography scan -Primary osteoarthritis -Essential hypertension Plan: Doing much better. Dr. José is planning a EGD tomorrow. Able to switch over to Augmentin soon.. Care discussed with the patient.
[2019-02-10] MEDS: ATORVASTATIN 10 MG TAB PO SCH (21:15)
[2019-02-11] MEDS: PIPERACILLIN-TAZOBACTAM 3.375 GM in SODIUM CHLORIDE 0.9% 100 ML IVPB SCH ×2 (00:59→09:18)
[2019-02-11] MEDS: SODIUM CHLORIDE 0.9% 1,000 ML IV SCH (01:00)
[2019-02-11 05:06] VITALS: RESP 18
[2019-02-11] MEDS: PANTOPRAZOLE 40 MG TABLET PO SCH (09:20)
[2019-02-11] MEDS: LOSARTAN 50 MG TAB PO SCH (09:20)
[2019-02-11] MEDS: ASPIRIN 81 MG PO SCH (09:20)
[2019-02-11] MEDS: ENOXAPARIN 40 MG/0.4 ML SYRINGE SQ SCH (09:21)
[2019-02-11 12:08] VITALS: PULSE 63; TEMP 97.8
[2019-02-11] MEDS ORDERED: PROPOFOL 10 MG/ML 20 ML VIAL IV ONE (12:56)
[2019-02-11] MEDS ORDERED: IV FLUID CONTINUATION 1,000 ML IV ONE (13:13)
--- NOTE | 2019-02-11 13:23 | P.PCN ---
Date of Procedure: 02/11/19 Procedure(s) Performed: Preoperative Dx: Peptic ulcer disease Postoperative Dx: Gastric ulcers, gastritis Procedure: EGD with Bx Anesthesia: Sedation Endoscopist: Dr. José Specimens: Antrum, gastric ulcer Endoscopic Procedure: The patient was on the endoscopy table in the left decubitus position. The Olympus gastroscope was inserted into the oropharynx and passed under direct visualization to the region of the third portion of the duodenum. From that point the scope was slowly withdrawn inspecting all surfaces carefully. There were no neoplastic inflammatory or polypoid lesions throughout the duodenum. The pylorus was widely patent. The stomach was carefully inspected. There was gastritis present with at least 3 distinct ulcers in the prepyloric and antrum. These were relatively small. This certainly explained the abnormal appearance on recent CAT scan. Biopsies of the antrum and ulcer took place. Retroflexion revealed a normal hiatus. The esophagus was then carefully examined. There were no neoplastic inflammatory or polypoid lesions throughout the visualized esophagus. The patient was then taken to the recovery room in stable condition per anesthesia guidelines. Recommendations: Continue antiacid therapy. Advance diet. May discharge. Await biopsy results. Follow-up EGD 3 months will be advised.
[2019-02-11 14:23] VITALS: BP 160/82
--- NOTE | 2019-02-11 16:54 | PN ---
PROGRESS NOTE DATE OF DICTATION: 02/11/2019 Patient is a 73-year-old pleasant white female admitted to the hospital with right lower lobe pneumonia. She underwent an upper endoscopy by Dr. José today because the CT scan showed abnormal thickening of the pylorus. The upper endoscopy revealed gastric ulcer in the antrum and some gastritis. The patient is on Protonix 40 mg daily. She denies any symptoms today. PHYSICAL EXAMINATION: She appears comfortable. No apparent distress. VITAL SIGNS: Stable. Blood pressure is 131/74, pulse rate 64, temperature 98.5. HEENT examination unremarkable. Conjunctivae pink. Sclerae anicteric. Oral cavity no lesions. NECK: No JVD or lymph node enlargement. CHEST: Clear to auscultation. HEART: Regular rate and rhythm. ABDOMEN: Soft. Bowel sounds are positive. No organomegaly. EXTREMITIES: No pedal edema. SKIN: No rashes. NEUROLOGIC: Alert and oriented x3. No focal deficits. LABS: No labs available from today. IMPRESSION: 1. Elevated liver function tests which are gradually improving. Hepatitis serologies for A, B and C are negative; possibly medication-related. 2. Peptic ulcer disease, status post esophagogastroduodenoscopy by Dr. José today that showed small antral ulcers; on Protonix 40 mg daily. 3. Right lower lobe pneumonia, on broad-spectrum antibiotics. RECOMMENDATIONS: The patient can be discharged home today. She can follow up in office in 2 weeks following discharge from the hospital, and we will follow her serum transaminases on an outpatient basis. Thank you for this consultation. MMODL / IJN: [id number] /
--- NOTE | 2019-02-11 17:11 | P.PN ---
Subjective Progress Note Date: 02/11/19 Principal diagnosis: Gastric mucosal thickening in the antral area with a differential diagnoses of ulcer and neoplasm Altered mental status due to delirium and sepsis Right middle lobe and lower lobe consolidation and pneumonia Acalculous cystitis and elevated liver enzymes Hypertension hypertensive cardiovascular disease Partial complex seizure Story of head trauma 02/11/2019 patient seen and evaluated examined during the rounds care plan discussed with the patient findings on endoscopy were noted patient has been doing well from respiratory standpoint recovered from anesthesia from endoscopy, the endoscopy revealed multiple small ulcers in the prepyloric antral area that would explain the findings on computed tomography scan, denies any cough or sputum production activity with discharge planning later on today 02/10/2019, patient seen and evaluated examined care plan discussed at length with the primary service and patient is going for endoscopy tomorrow for abnormal finding and gastric antrum from respiratory standpoint doing well remains on Zosyn hopefully can be changed to Augmentin next 24 hours for 7-10 days on outpatient basis O follow up and do a repeat computed tomography scan pending further findings on the gastric mucosal wall This is a 73-year-old female with extensive history of smoking and nicotine use in the remote past patient was brought in the emergency department with shortness of breath cough for 1 week duration and eventually become very confused as noted by review of the records revealed that she has a large consolidation in right middle lobe and some on the right lower lobe with small right-sided pleural effusion diagnosed as pneumonia patient has been on IV Zosyn and she also has a history of complex partial seizure history of head trauma about 3 years ago it appears that patient is now back to baseline today, the chest x-ray performed today on February 09 continue show a right sided lower lobe middle lobe consolidation Objective - Vital Signs Vital signs: Vital Signs Temp 97.8 F 02/11/19 12:03 Pulse 63 02/11/19 12:03 Resp 18 02/11/19 12:03 BP 160/82 02/11/19 14:22 Pulse Ox 98 02/11/19 12:03 Intake & Output 02/10/19 02/11/19 02/11/19 18:59 06:59 18:59 Intake Total 100 1100 300 Balance 100 1100 300 Intake: IV 200 Intake, IV Titration 100 1100 100 Amount Piperacillin-Tazobactam 3 100 200 100 .375 gm In Sodium Chloride 0.9% 100 ml @ 25 mls/hr IVPB Q8HR [facility] Rx# :[id number] Sodium Chloride 0.9% 1, 900 000 ml @ 75 mls/hr IV . [id number] [facility] Rx#:[id number] Other: Voiding Method Toilet Toilet Toilet # Voids 1 - Exam - Constitutional General appearance: average body habitus, cooperative, disheveled, mild distress - EENT Eyes: anicteric sclerae, EOMI, PERRLA, normal appearance ENT: normal oropharynx Ears: bilateral: normal - Neck Neck: normal ROM Carotids: bilateral: upstroke normal, bruit absent Thyroid: bilateral: normal size - Respiratory Respiratory: right: diminished, rales, negative: rhonchi, wheezing, prolonged expiration - Cardiovascular Rhythm: regular Heart sounds: normal: S1, S2 - Gastrointestinal General gastrointestinal: decreased bowel sounds, soft - Integumentary Integumentary: normal, normal turgor - Musculoskeletal Musculoskeletal: gait normal, generalized weakness, strength equal bilaterally - Psychiatric Psychiatric: A&O x's 3, appropriate affect, intact judgment & insight - Labs CBC & Chem 7: 02/09/19 07:30 02/10/19 07:46 Labs: Microbiology - Last 24 Hours (Table) 02/07/19 17:34 Blood Culture - Preliminary Blood No Growth after 72 hours Assessment and Plan Assessment: Abnormal gastric mucosal wall and antral area due to multiple ulcers is status post biopsy obtained Altered mental status due to delirium and sepsis improved Right middle lobe and lower lobe consolidation and pneumonia Acalculous cystitis and elevated liver enzymes Hypertension hypertensive cardiovascular disease Partial complex seizure Story of head trauma Plan: Agree with oral antibiotics like Augmentin for another 7-10 days Awaiting biopsy results on EGD Monitor clinical course closely with labs Agree with discharge planning with follow-up on outpatient then patient will require a follow-up computed tomography scan Time with Patient: Greater than 30
--- NOTE | 2019-02-13 22:19 | P.DS ---
Providers Date of admission: 02/07/19 17:50 Expected date of discharge: 02/11/19 Attending physician: [facility] Consults: 02/07/19 17:51 Consult Physician Urgent Consulting Provider: Pedro José Consult Reason/Comments: gallbladder sludge, transaminitis Do you want consulting provider notified?: Yes 02/08/19 09:01 Consult Physician Routine Consulting Provider: Deena Denson Consult Reason/Comments: elevated liver enzymes Do you want consulting provider notified?: Yes 02/08/19 13:56 Consult Physician Routine Consulting Provider: Carlos Alberto Vargas Consult Reason/Comments: Right lung consolidation Do you want consulting provider notified?: Yes Primary care physician: [facility] Course: Chief Complaint: Cough and confusion Interval history: This is a pleasant 73-year-old patient of Dr. hoffman. Patient presents to the ER. This is the ER physician note: " Patient is 73-year-old female who presents emergency Department with reported confusion. is at bedside and provides majority of the history. He states that her symptoms started on . Patient has appeared to be more confused since then. Reports that that today she went to the bank without her shoes. She has had a slow downward progression with her mentation. states that appears as if she has hard of hearing. She asks multiple times what he had said. She has been extremely tremulous. states that she has been unable to drink a cup of coffee as she does still majority of it. Denies any unilateral numbness or weakness. Does admit to generalized weakness. No recent blunt head trauma. The patient is not on any blood thinners. No recent medication changes. Does not take any medications [id number]. She denies any pain. There is no headache or visual changes. Denies any neck pain or stiffness. No fevers or chills. Denies any sick contacts or recent travel. No history of TIA or CVA. The reports the patient has a cough which is nonproductive. Denies hemoptysis. No abdominal pain or changes in her urination. Denies dysuria, hematuria or difficulty voiding. Denies any changes in her bowel movements including diarrhea, constipation, melanotic stools or hematochezia. No back pain or flank pain. No history of similar episode in the past. There are no other alleviating, precipitating or modifying factors " Patient does not remember much of this. She states she's had a chronic cough large 4-5 days. No phlegm. No fever no chills. Does feel rather tired more so significantly. Feels like sleeping all the time. Denies any major shortness of breath. Patient does state that 3 years ago she had head injury. Looking at the old note she had a diagnosis of complex partial seizures. Was on Keppra. No further episodes since then. Chest x-ray showed a dense consolidation in the right side. Patient started antibiotics. IV Zosyn. Responded well. Treated for pneumonia. LFTs are up started to come down. [place] to be from pneumonia. EGD showed gastric ulcer. Patient doing much better back to baseline at time of discharge. Further x-ray workup to be done by broke handler. Care was discussed in detail with the patient. Consultation: Dr. Savi Denson from GI Dr. Shabbir José from surgery Dr. Christianne Vargas from pulmonary Physical examination: VITAL SIGNS: 97.8, 63, 18, 160 with 82, 98% room air GENERAL: Sitting up, comfortable talkative EYES: Pupils equal. Conjunctiva normal. HEENT: External appearance of nose and ears normal, oral cavity grossly normal. NECK: JVD not raised; masses not palpable. HEART: First and second heart sounds are normal; no edema. LUNGS: Respiratory rate normal; clear to auscultation. ABDOMEN: Soft, nontender, liver spleen not palpable, no masses palpable. PSYCH: [Alert and oriented x3; mood and affect normal l. NEUROLOGICAL: Cranial nerves grossly intact; no facial asymmetry, power and sensation grossly intact. INVESTIGATIONS, reviewed in the clinical context: Potassium 4 AST 118 ALT was 67 albumin 2.6 pro calcitonin . 42 Hepatitis screen negative Previous testing White count 5 hemoglobin 11.7 potassium 4.1 White count 6.2 hemoglobin 12.4 potassium 3.9 creatinine 1.14 AST 200 ALT 232 Admission testing: Total bilirubin 1.4 AST 384 ALT 308 albumin 3.1 TSH 0.6.6 Chest x-ray film personally reviewed by me-shows a dense consolidation on the right lower part CT chest-consultation extensive right middle lobe. Moderate circumferential thickening at the level of the gastric antrum and pylorus Abdominal ultrasound-gallbladder sludge Discharge diagnosis: -Right lower lobe pneumonia, improving -Possible delirium from underlying pneumonia, much improved -Abnormal LFTs. Likely from pneumonia, improving -Gastric ulcer on EGD -Primary osteoarthritis -Essential hypertension Disposition: Home Patient Condition at Discharge: Stable Plan - Discharge Summary Discharge Rx Participant: No New Discharge Prescriptions: New Omeprazole [PriLOSEC] 20 mg PO AC-BRKFST #90 cap Amoxicillin/Potassium Clav [Augmentin 875-125 Tablet] 1 tab PO Q12HR #10 tab Chlorthalidone 25 mg PO DAILY #1 tab Continue Aspirin EC [Ecotrin Low Dose] 81 mg PO DAILY Losartan Potassium 100 mg PO DAILY Simvastatin [Zocor] 20 mg PO HS levETIRAcetam [Keppra] 750 mg PO Q12H Discharge Medication List Aspirin EC [Ecotrin Low Dose] 81 mg PO DAILY 02/19/16 [History] Losartan Potassium 100 mg PO DAILY 02/19/16 [History] Simvastatin [Zocor] 20 mg PO HS 02/19/16 [History] levETIRAcetam [Keppra] 750 mg PO Q12H 02/07/19 [History] Amoxicillin/Potassium Clav [Augmentin 875-125 Tablet] 1 tab PO Q12HR #10 tab 02/11/19 [Rx] Chlorthalidone 25 mg PO DAILY #1 tab 02/11/19 [Rx] Omeprazole [PriLOSEC] 20 mg PO AC-BRKFST #90 cap 02/11/19 [Rx] Follow up Appointment(s)/Referral(s): Pedro José MD [Medical Doctor] - 03/11/19 9:30 am Kevin Hoffman DO [Primary Care Provider] - 02/17/19 1:20 pm Carlos Alberto Vargas MD [STAFF PHYSICIAN] - 03/02/19 10:15 am Patient Instructions/Handouts: Omeprazole (By mouth), Amoxicillin/Clavulanate Potassium (By mouth), Chlorthalidone (By mouth), Peptic Ulcer (DC), Gastritis (DC), Pneumonia (DC) Discharge Disposition: HOME SELF-CARE
== END 2019-02-11 16:00 | disposition home or self-care (01) | DRG 194 ==
LOC: EC 12:56 → 3NMEDONC 17:50
PROVIDERS: ADMIT Hospitalist; ATTEND Hospitalist
PROC: 0DB78ZX Excision of Stomach, Pylorus, Via Natural or Artificial Opening Endoscopic, Diagnostic (ICD-10-PCS; principal; 2019-02-11 14:30)
DX: J18.9 Pneumonia, unspecified organism (principal); G40.209 Localization-related (focal) (partial) symptomatic epilepsy and epileptic syndromes with complex partial seizures, not intractable, without status epilepticus; E78.5 Hyperlipidemia, unspecified; I11.9 Hypertensive heart disease without heart failure; K25.9 Gastric ulcer, unspecified as acute or chronic, without hemorrhage or perforation; K29.70 Gastritis, unspecified, without bleeding; K82.8 Other specified diseases of gallbladder; K83.8 Other specified diseases of biliary tract; M19.90 Unspecified osteoarthritis, unspecified site; N30.90 Cystitis, unspecified without hematuria; Z87.820 Personal history of traumatic brain injury; Z79.82 Long term (current) use of aspirin; Z79.899 Other long term (current) drug therapy; Z82.49 Family history of ischemic heart disease and other diseases of the circulatory system; Z87.11 Personal history of peptic ulcer disease; Z87.891 Personal history of nicotine dependence; Z96.642 Presence of left artificial hip joint; R74.0 Nonspecific elevation of levels of transaminase and lactic acid dehydrogenase [LDH]; R41.0 Disorientation, unspecified
CPT/HCPCS: 36415; 43239; 51798; 70450; 71046; 74177; 76705; 80053; 80074; 80329; 81001; 82105; 82140; 82550; 83520; 83605; 83735; 84145; 84443; 84484; 85025; 85610; 85730; 87040; 88305; 93005; 96361; 96365; 96367; 99285

== ENCOUNTER → 2019-02-18 | Outpatient (CLI) | payer MEDICARE ==
--- NOTE | 2019-02-18 15:21 | XR ---
EXAMINATION TYPE: XR chest 2V DATE OF EXAM: 02/18/2019 COMPARISON: Prior chest x-ray 02/09/2019 HISTORY: Lumbar pneumonia TECHNIQUE: Frontal and lateral views of the chest are obtained. FINDINGS: There is some improvement in the aeration in the right middle lobe. Residual increased den sity is noted. No pneumothorax. No other significant interval change. IMPRESSION: Improvement in aeration as described.
== END | disposition home or self-care (01) ==
LOC: RADXRMAIN 11:20
PROVIDERS: ATTEND Family Medicine
DX: J18.1 Lobar pneumonia, unspecified organism (principal)
CPT/HCPCS: 71046

== ENCOUNTER → 2019-03-04 | Outpatient (CLI) | payer MEDICARE ==
--- NOTE | 2019-03-04 16:26 | XR ---
EXAMINATION TYPE: XR chest 2V DATE OF EXAM: 03/04/2019 COMPARISON: Prior chest x-ray 02/18/2019 HISTORY: Pneumonia TECHNIQUE: Frontal and lateral views of the chest are obtained. FINDINGS: There is some improved aeration in the right middle lobe as compared to prior exam, persis tent patchy density is present however. No evident pneumothorax or pleural effusion. No other signifi cant interval change. Prominent lung volumes may be indicative of underlying COPD. IMPRESSION: There is some residual atelectatic change or scarring versus minimal residual airspace d isease. Additional follow-up suggested.
== END | disposition home or self-care (01) ==
LOC: RADXRMAIN 11:30
PROVIDERS: ATTEND Family Medicine
DX: J18.9 Pneumonia, unspecified organism (principal)
CPT/HCPCS: 71046

== ENCOUNTER → 2019-04-02 | Outpatient (CLI) | payer MEDICARE ==
--- NOTE | 2019-04-02 16:13 | CT ---
EXAMINATION TYPE: CT chest wo con DATE OF EXAM: 04/02/2019 COMPARISON: None HISTORY: Follow up for atelectasis and pnemonia. CT DLP: [address] of the chest was performed with lung and mediastinal window settings submitted. The la ck of contrast limits evaluation of the vascular, mediastinal and parenchymal structures including th e upper abdomen. LUNGS: Atelectasis or parenchymal scarring right upper lobe. No pulmonary nodule or mass is detected. No pleural effusion. No CT evidence of interstitial lung disease. MEDIASTINUM/ESTEVAN: Thoracic aorta is of normal caliber with limited evaluation given lack of contrast . The heart is not enlarged. No evidence for mediastinal mass. No lymph nodes greater than 1cm. UPPER ABDOMEN: No significant abnormality is seen. OTHER: No significant other abnormality. IMPRESSION: 1. No acute process seen. Atelectasis or parenchymal scarring right upper lobe.
== END | disposition home or self-care (01) ==
LOC: RADCTMAIN 15:47
PROVIDERS: ATTEND Internal Medicine Sleep Medicine
DX: J18.9 Pneumonia, unspecified organism (principal); J98.11 Atelectasis
CPT/HCPCS: 71250

== ENCOUNTER → 2022-11-11 | Outpatient (CLI) | payer MEDICARE ==
[2022-11-11 10:01] LABS: Creatinine,Urine Random 103.5 mg/dL; Protein/Creatinine Ratio,Urine 0.058
--- NOTE | 2022-11-11 15:09 | US ---
EXAMINATION TYPE: US kidneys/renal and bladder DATE OF EXAM: 11/11/2022 COMPARISON: NONE CLINICAL INDICATION: Female, 77 years old with history of [id number] CHRONIC KID DISEASE STATE 3; abnormal kidney function on blood work EXAM MEASUREMENTS: Right Kidney: 7.6x4.4x4.9 cm Left Kidney: 8.7x3.9x3.8 cm Multiple grayscale and color Doppler ultrasound images of both kidneys and urinary bladder were obtai howie. Right Kidney: No hydronephrosis or masses seen Left Kidney: No hydronephrosis or masses seen Bladder: wnl Bilateral Jets seen: Yes There is no evidence for hydronephrosis at this point in time. No nephrolithiasis is seen. Corticome dullary differentiation is maintained bilaterally. No masses are identified. The urinary bladder is anechoic. Bilateral ureteral jets are seen. Exam technically difficult, and limited by rib shadows and overlying bowel gas IMPRESSION: No hydronephrosis or definitive nephrolithiasis.
[2022-11-11 16:01] LABS: Albumin 4.4 d/dL; Albumin/Globulin Ratio 1.76 Ratio; Anion Gap 11.9 mmol/L; BUN/Creat Ratio 17.58 Ratio; Blood Urea Nitrogen 21.1 mg/dL; Calcium 9.6 mg/dL; Carbon Dioxide 26.1 mmol/L; Globulin 2.5 d/dL; Phosphorus 3.4 mg/dL; Potassium 4.6 mmol/L; Total Protein 6.9 d/dL
[2022-11-11 16:07] LABS: HCT 42.1 %; MCH 30.2 pg; MCHC 30.9 d/dL; MCV 97.9 FL; Mean Platelet Volume 14.4 FL; NRBC Per 100 WBC 0 X 10*3/uL; Platelet Count 218 X 10*3/uL; WBC 7.05 X 10*3/uL
[2022-11-11 18:38] LABS: Bilirubin,Urine Negative; Blood,Urine Negative; Color,Urine Yellow; Ketones,Urine Negative; Nitrite,Urine Negative; PH, Urine 6.5; Specific Gravity,Urine 1.014; Urobilinogen,Urine 0.2
[2022-11-12 08:27] LABS: Appearance,Urine Clear (Clear)
== END | disposition home or self-care (01) ==
LOC: RADUSWWP 08:58
PROVIDERS: ATTEND Family Medicine
DX: N18.30 Chronic kidney disease, stage 3 unspecified (principal)
CPT/HCPCS: 36415; 76770; 80053; 81001; 82570; 84100; 84156; 85027

== ENCOUNTER → 2023-01-08 | Outpatient (CLI) | payer MEDICARE ==
[2023-01-08 13:47] LABS: Creatinine,Urine Random 111.2 mg/dL; Protein/Creatinine Ratio,Urine 0.054
[2023-01-08 16:48] LABS: HCT 40.9 % (37.2-46.3); HGB 12.8 d/dL (12.0-15.0); MCHC 31.3 d/dL (32.0-37.0); Mean Platelet Volume 14.8 FL (9.5-12.2); NRBC Per 100 WBC 0 X 10*3/uL (0.00-0.01); Platelet Count 218 X 10*3/uL (140-440); RBC 4.13 X 10*6/uL (4.10-5.20); RDW 12.5 % (11.5-14.5); WBC 7.23 X 10*3/uL (4.50-10.00)
[2023-01-08 16:53] LABS: ALT 20 U/L (8-44); AST 24 U/L (13-35); Albumin 4.4 d/dL (3.8-4.9); Albumin/Globulin Ratio 1.91 Ratio (1.60-3.17); Alkaline Phosphatase 99 U/L (41-126); BUN/Creat Ratio 15.31 Ratio (12.00-20.00); Blood Urea Nitrogen 19.9 mg/dL (9.0-27.0); Carbon Dioxide 26.3 mmol/L (21.6-31.8); Chloride 101 mmol/L (96-109); Globulin 2.3 d/dL (1.6-3.3); Glucose 88 mg/dL (70-110); Phosphorus 3.5 mg/dL (2.4-5.1); Potassium 4.8 mmol/L (3.5-5.5); Sodium 138 mmol/L (135-145); Total Bilirubin 0.8 mg/dL (0.3-1.2); Total Protein 6.7 d/dL (6.2-8.2)
[2023-01-08 17:20] LABS: Appearance,Urine Clear (Clear); Bilirubin,Urine Negative (Negative); Blood,Urine Negative (Negative); Color,Urine Yellow (Yellow); Ketones,Urine Negative (Negative); Nitrite,Urine Negative (Negative); PH, Urine 6.5; Specific Gravity,Urine 1.014 (1.001-1.030)
[2023-01-08 17:27] LABS: Bacteria,Urine None Seen (None Seen)
== END | disposition home or self-care (01) ==
LOC: LABWHC1 10:29
PROVIDERS: ATTEND Family Medicine
DX: N18.30 Chronic kidney disease, stage 3 unspecified (principal)
CPT/HCPCS: 36415; 80053; 81001; 82570; 84100; 84156; 85027

== ENCOUNTER → 2023-04-10 | Outpatient (CLI) | payer MEDICARE ==
[2023-04-10 09:59] LABS: Basophils % (A) 0 %; Eosinophils # (A) 0.2 k/uL (0-0.7); Eosinophils % (A) 3 %; HCT 40.6 % (34.0-46.0); Lymphocytes # (A) 1.2 k/uL (1.0-4.8); Lymphocytes % (A) 18 %; MCH 31.2 pg (25.0-35.0); MCHC 32.1 g/dL (31.0-37.0); MCV 97.3 fL (80.0-100.0); Mean Platelet Volume 10.8; Monocytes # (A) 0.3 k/uL (0-1.0); Monocytes % (A) 5 %; Neutrophils # (A) 4.6 k/uL (1.3-7.7); Neutrophils % (A) 72 %; Platelet Count 229 k/uL (150-450); RBC 4.17 m/uL (3.80-5.40); RDW 12.5 % (11.5-15.5); WBC 6.4 k/uL (3.8-10.6)
[2023-04-10 16:21] LABS: Appearance,Urine Cloudy (Clear); Bilirubin,Urine Negative (Negative); Blood,Urine Negative (Negative); Color,Urine Dark Yellow (Yellow); Ketones,Urine Trace (Negative); Nitrite,Urine Negative (Negative); PH, Urine 5.5; Specific Gravity,Urine 1.023 (1.001-1.030)
[2023-04-10 16:36] LABS: ALT 16 U/L (8-44); AST 18 U/L (13-35); Albumin 4.2 d/dL (3.8-4.9); Alkaline Phosphatase 88 U/L (41-126); BUN/Creat Ratio 13.71 Ratio (12.00-20.00); Blood Urea Nitrogen 19.2 mg/dL (9.0-27.0); Calcium 9.8 mg/dL (8.7-10.3); Carbon Dioxide 27.5 mmol/L (21.6-31.8); Chloride 102 mmol/L (96-109); Chol/HDL Ratio 2.18 Ratio; Globulin 2.1 d/dL (1.6-3.3); Glucose 96 mg/dL (70-110); LDL Cholesterol,Calculated 60.8 mg/dL (0.0-131.0); Potassium 4.2 mmol/L (3.5-5.5); Sodium 140 mmol/L (135-145); Total Bilirubin 0.8 mg/dL (0.3-1.2); Total Protein 6.3 d/dL (6.2-8.2)
[2023-04-10 16:51] LABS: Bacteria,Urine 2+ (None Seen); Yeast (UA) Present (None Seen)
== END | disposition home or self-care (01) ==
LOC: LABWHC1 09:12
PROVIDERS: ATTEND Family Medicine
DX: I10 Essential (primary) hypertension (principal); E55.9 Vitamin D deficiency, unspecified; E78.00 Pure hypercholesterolemia, unspecified
CPT/HCPCS: 36415; 80053; 80061; 81001; 82306; 83036; 85025

== ENCOUNTER → 2023-08-26 | Outpatient (CLI) | payer MEDICARE ==
--- NOTE | 2023-08-26 11:02 | XR ---
EXAMINATION TYPE: XR chest 2V DATE OF EXAM: 08/26/2023 COMPARISON: 03/04/2019 TECHNIQUE: PA and lateral views submitted. HISTORY: Recent pneumonia FINDINGS: The lungs are clear and there is no pneumothorax, pleural effusion, or focal pneumonia. Heart size normal and no overt failure. Osseous structures demonstrate hypertrophic and degenerative changes of the spine. Left perihilar subsegmental changes are most available residual atelectasis or scarring. Mild emphysematous changes. Arthropathy of the left shoulder and postsurgical changes right shoulder IMPRESSION: 1. Minimal residual scarring or atelectasis without definite acute infiltrate. 2. Correlate for COPD.
== END | disposition home or self-care (01) ==
LOC: RADXRMAIN 10:11
PROVIDERS: ATTEND Internal Medicine Sleep Medicine
DX: J44.9 Chronic obstructive pulmonary disease, unspecified (principal); J18.9 Pneumonia, unspecified organism
CPT/HCPCS: 71046

== ENCOUNTER → 2023-10-08 | Outpatient (CLI) | payer MEDICARE ==
[2023-10-08 16:07] LABS: ALT 27 U/L (8-44); AST 26 U/L (13-35); BUN/Creat Ratio 16.62 Ratio (12.00-20.00); Blood Urea Nitrogen 21.6 mg/dL (9.0-27.0); Calcium 9.8 mg/dL (8.7-10.3); Carbon Dioxide 26.9 mmol/L (21.6-31.8); Chloride 103 mmol/L (96-109); Chol/HDL Ratio 2.22 Ratio; Glucose 96 mg/dL (70-110); LDL Cholesterol,Calculated 84.4 mg/dL (0.0-131.0); Potassium 4.4 mmol/L (3.5-5.5); Sodium 142 mmol/L (135-145); VLDL Calculation 14.02 mg/dL (5.00-40.00)
[2023-10-09 06:34] LABS: Levetiracetam (Keppra) 29.8 ug/mL (3.0-60.0)
[2023-10-09 10:21] LABS: Alt. alternata IgE Class CLASS 0; Alternaria alternata IgE <0.10 kU/L (<0.10); Asperg. fumagatus IgE <0.10 kU/L (<0.10); Asperg. fumagatus IgE Class CLASS 0; Candida albicans IgE Class CLASS 0; Clad herbarum IgE <0.10 kU/L (<0.10); Clad herbarum IgE Class CLASS 0; Latex IgE Class CLASS 0; Mucor racemosus IgE <0.10 kU/L (<0.10); Mucor racemosus IgE Class CLASS 0; Penicillium chrysogenum IgE <0.10 kU/L (<0.10); Penicillium chrysogenum IgE Cl CLASS 0
== END | disposition home or self-care (01) ==
LOC: LABWHC1 09:58
PROVIDERS: ATTEND Psychiatry & Neurology Neurology
DX: I12.9 Hypertensive chronic kidney disease with stage 1 through stage 4 chronic kidney disease, or unspecified chronic kidney disease (principal); G40.409 Other generalized epilepsy and epileptic syndromes, not intractable, without status epilepticus; E55.9 Vitamin D deficiency, unspecified; E78.00 Pure hypercholesterolemia, unspecified; N18.30 Chronic kidney disease, stage 3 unspecified; R06.02 Shortness of breath; R05.3 Chronic cough
CPT/HCPCS: 36415; 80048; 80061; 80177; 82306; 82785; 83036; 84450; 84460; 85025; 86001; 86003; 86606; 86609

== ENCOUNTER → 2023-10-13 | Outpatient (CLI) | payer MEDICARE ==
[2023-10-13 19:32] LABS: Basophils # (A) 0.05 X 10*3/uL (0.00-0.10); Basophils % (A) 0.7 %; Eosinophils # (A) 0.09 X 10*3/uL (0.04-0.35); Eosinophils % (A) 1.3 %; HCT 41.8 % (37.2-46.3); HGB 13.3 g/dL (12.0-15.0); Lymphocytes % (A) 26.6 %; MCH 31.8 pg (27.0-32.0); MCHC 31.8 g/dL (32.0-37.0); Mean Platelet Volume 15.3 FL (9.5-12.2); Monocytes # (A) 0.59 X 10*3/uL (0.20-1.00); Monocytes % (A) 8.3 %; NRBC Per 100 WBC 0 X 10*3/uL (0.00-0.01); Neutrophils # (A) 4.49 X 10*3/uL (1.80-7.70); Neutrophils % (A) 62.7 %; Platelet Count 198 X 10*3/uL (140-440); RBC 4.18 X 10*6/uL (4.10-5.20); WBC 7.15 X 10*3/uL (4.50-10.00)
== END | disposition home or self-care (01) ==
LOC: LABWHC1 14:34
PROVIDERS: ATTEND Family Medicine
DX: I10 Essential (primary) hypertension (principal)
CPT/HCPCS: 36415; 85025

== ENCOUNTER → 2024-04-06 | Outpatient (CLI) | payer MEDICARE ==
[2024-04-06 10:30] LABS: Appearance,Urine Clear (Clear); Bacteria,Urine Occasional /hpf; Bilirubin,Urine Negative (Negative); Blood,Urine Negative (Negative); Color,Urine Colorless; Glucose,Urine (UA) Negative (Negative); Hyaline Casts,Urine 1 /lpf (0-2); Ketones,Urine Negative (Negative); Leukocyte Esterase,Urine Moderate (Negative); Mucus,Urine Rare /hpf; Nitrite,Urine Negative (Negative); PH, Urine 6.5 (5.0-8.0); Protein,Urine Negative (Negative); RBC,Urine 2 /hpf (0-5); Specific Gravity,Urine 1.009 (1.001-1.035); Squamous Epithelial Cell,Urine 6 /hpf (0-4); Urobilinogen,Urine <2.0 mg/dL (<2.0); WBC,Urine 5 /hpf (0-5)
[2024-04-06 15:24] LABS: Basophils # (A) 0.05 X 10*3/uL (0.00-0.10); Basophils % (A) 0.7 %; Eosinophils # (A) 0.18 X 10*3/uL (0.04-0.35); Eosinophils % (A) 2.7 %; HCT 39.6 % (37.2-46.3); HGB 12.6 g/dL (12.0-15.0); Lymphocytes # (A) 1.41 X 10*3/uL (0.90-5.00); Lymphocytes % (A) 20.8 %; MCH 31.3 pg (27.0-32.0); MCHC 31.8 g/dL (32.0-37.0); MCV 98.3 FL (80.0-97.0); Mean Platelet Volume 14.1 FL (9.5-12.2); Monocytes # (A) 0.61 X 10*3/uL (0.20-1.00); NRBC Per 100 WBC 0 X 10*3/uL (0.00-0.01); Neutrophils # (A) 4.52 X 10*3/uL (1.80-7.70); Neutrophils % (A) 66.5 %; Platelet Count 205 X 10*3/uL (140-440); RBC 4.03 X 10*6/uL (4.10-5.20); WBC 6.79 X 10*3/uL (4.50-10.00)
[2024-04-06 16:43] LABS: ALT 15 U/L (8-44); AST 22 U/L (13-35); Albumin 4.2 g/dL (3.8-4.9); Alkaline Phosphatase 104 U/L (41-126); BUN/Creat Ratio 15.54 Ratio (12.00-20.00); Blood Urea Nitrogen 20.2 mg/dL (9.0-27.0); Calcium 9.7 mg/dL (8.7-10.3); Carbon Dioxide 26.1 mmol/L (21.6-31.8); Chloride 105 mmol/L (96-109); Chol/HDL Ratio 1.83 Ratio; Glucose 90 mg/dL (70-110); LDL Cholesterol,Calculated 56.8 mg/dL (0.0-131.0); Potassium 5.1 mmol/L (3.5-5.5); Sodium 142 mmol/L (135-145); Total Bilirubin 1.2 mg/dL (0.3-1.2); Total Protein 6.2 g/dL (6.2-8.2)
== END | disposition home or self-care (01) ==
LOC: LABWHC1 09:21
PROVIDERS: ATTEND Family Medicine
DX: Z00.01 Encounter for general adult medical examination with abnormal findings (principal)
CPT/HCPCS: 36415; 80053; 80061; 81001; 82306; 83036; 84443; 85025

== ENCOUNTER → 2024-10-06 | Outpatient (CLI) | payer MEDICARE ==
[2024-10-06 15:45] LABS: ALT 20 U/L (8-44); BUN/Creat Ratio 19.92 Ratio (12.00-20.00); Blood Urea Nitrogen 23.9 mg/dL (9.0-27.0); Calcium 10.3 mg/dL (8.7-10.3); Carbon Dioxide 27.3 mmol/L (21.6-31.8); Chloride 99 mmol/L (96-109); Chol/HDL Ratio 2.01 Ratio; Glucose 94 mg/dL (70-110); LDL Cholesterol,Calculated 70.3 mg/dL (0.0-131.0); Sodium 139 mmol/L (135-145)
[2024-10-06 15:46] LABS: Basophils # (A) 0.05 X 10*3/uL (0.00-0.10); Basophils % (A) 0.6 %; Eosinophils # (A) 0.11 X 10*3/uL (0.04-0.35); Eosinophils % (A) 1.4 %; HCT 43.8 % (37.2-46.3); HGB 13.6 g/dL (12.0-15.0); Lymphocytes # (A) 1.46 X 10*3/uL (0.90-5.00); MCH 30.6 pg (27.0-32.0); MCHC 31.1 g/dL (32.0-37.0); MCV 98.4 FL (80.0-97.0); Mean Platelet Volume 14.5 FL (9.5-12.2); Monocytes % (A) 7.4 %; NRBC Per 100 WBC 0 X 10*3/uL (0.00-0.01); Neutrophils # (A) 5.88 X 10*3/uL (1.80-7.70); Neutrophils % (A) 72.4 %; Platelet Count 212 X 10*3/uL (140-440); RBC 4.45 X 10*6/uL (4.10-5.20); WBC 8.12 X 10*3/uL (4.50-10.00)
== END | disposition home or self-care (01) ==
LOC: LABWHC1 11:22
PROVIDERS: ATTEND Family Medicine
DX: I12.9 Hypertensive chronic kidney disease with stage 1 through stage 4 chronic kidney disease, or unspecified chronic kidney disease (principal); N18.30 Chronic kidney disease, stage 3 unspecified; E78.00 Pure hypercholesterolemia, unspecified; E55.9 Vitamin D deficiency, unspecified
CPT/HCPCS: 36415; 80048; 80061; 82024; 82306; 83036; 84460; 85025